=== PATIENT | male | born 1945 | race Caucasian/White ===

== ENCOUNTER 2021-08-30 16:08 | Inpatient (IN) ==
--- NOTE | 2021-08-30 16:35 | Emergency Department Note ---
Impression & Plan SOB (shortness of breath), Pleuritic chest pain, Pulmonary emboli, Recent surgical procedure on lower extremity ED Provider Note NAME: ELFEGO LARRY AGE: 76 SEX: M : 1945 ARRIVES VIA: Walk-In INFORMANT: [Patient] ED PROVIDER(S): [Catrachito Lima MD] CHIEF COMPLAINT: Abnormal CT scan HISTORY OF PRESENT ILLNESS: The patient is a 76-year-old male who states that for 4 days, he has been short of breath and he has noticed some left pleuritic chest pain. The pain is moderate in severity. The patient has not had an increased cough or fever. He has no history of DVT or PE. Because of his complaints, he saw his doctor's office 2 days ago, and today, had a CT of his chest run. He does have bilateral pulmonary embolus findings. He was referred to the ER. The patient did have a surgery on the left posterior leg. The surgical work was done on August 15, about 2 weeks ago. The surgery was done for a melanoma. He also had a biopsy of the left groin lymph glands. The patient states that his biopsy and surgical sites are healing well. He is due to have the sutures out soon from the back of the left leg. He did notice some left leg swelling right after the surgery however, this seems to have resolved. The patient is vaccinated for COVID-19. He actually had COVID about 2 years ago at the start of the pandemic. He carries a history of interstitial lung disease. REVIEW OF SYSTEMS: See HPI for pertinent positives and negatives. A total of ten systems were reviewed and were otherwise negative. PMHx/PSHx: See Below SOCIAL HISTORY: See Below. PHYSICAL EXAM: GENERAL: Patient is in no acute distress. HEENT: No acute trauma, normocephalic atraumatic, mucous membranes moist, no nasal congestion, no scleral icterus. NECK: No stridor, no adenopathy, no meningismus, trachea is midline. LUNGS: A few very fine crackles were heard, no wheezes, no respiratory distress, breath sounds equal. HEART: Without murmurs gallops or rubs, regular rate and rhythm. ABDOMEN: Soft, nontender, bowel sounds positive, no hernias, no peritonitis. EXTREMITIES: No cyanosis or edema, full range of motion of all the joints without pain or difficulty, no signs for acute trauma. Patient does have sutures in place behind the left knee. There is some erythema around the wound but no warmth or drainage. NEUROLOGIC: Oriented x 3, no acute motor or sensory deficits, no focal weakness. SKIN: No rash, no jaundice, no diaphoresis. DIFFERENTIAL DIAGNOSIS: Reactive airway disease, pneumonia, pneumothorax, COVID-19, COPD, CHF, infection, cardiac ischemia, pulmonary embolism, DVT, bronchitis, musculoskeletal, gastrointestinal, as well as other pathologies. EMERGENCY DEPARTMENT COURSE/PROCEDURES: ECG: Indication was shortness of breath. The ECG shows a normal sinus rhythm with a rate of 77. There is no ST elevation, no PVCs. LVH is present. The QTc is 434. Continuous Cardiac Monitoring: An order was placed for continuous cardiac monitoring. The monitor shows a rate of 86 with normal sinus rhythm. Critical Care Note: I have personally spent 41 minutes of critical care time in the direct management of this patient. This includes bedside care, interpretation of diagnostic studies, and testing, discussion with consultants, patient, and family members, and other required patient management activities. This 41 minutes is in excess of all separately billable procedures. MEDICAL DECISION MAKING: There is a mild leukocytosis which could be consistent with infection or just the stress of his situation. There is a normal hemoglobin and platelet count. No concerning coagulopathy. No significant electrolyte abnormality or kidney failure. There is no concerning liver enzyme elevation. Covid testing is negative. ECG shows a sinus rhythm, no acute ischemia. Cardiac enzyme testing x1 is not consistent with acute cardiac injury. Chest x-ray shows some chronic findings, no pneumonia or CHF, no pneumothorax. CT imaging from earlier today does show segmental and subsegmental bilateral pulmonary emboli. Bilateral lower extremity ultrasound is currently pending. The patient presents with an abnormal outpatient chest CT. He has bilateral pulmonary emboli. He did recently have surgery on his left lower extremity. He has complained of some pleuritic chest pain and shortness of breath. Given the recent surgery, given the multiple PEs, I do think a hospital stay is warranted. He requires IV anticoagulation. The patient was ordered for IV heparin, low dose, without a bolus. I spoke with the patient, I did speak with case management. The on-call hospitalist has been consulted. Past Med/Surg History Medical History Constipation COVID-19 Transurethral prostatectomy (05/14/13) Social History Smoking Status: Never smoker Tobacco Type: Cigarettes Feels Safe at Home: Yes Allergies Allergies Allergy/AdvReac Type Severity Reaction Status Date / Time phenazopyridine AdvReac Intermediate TACHYCARDIA Verified 08/30/21 16:58 tamsulosin AdvReac Intermediate HYPOTENSION Verified 08/30/21 16:58 Home Meds Home Medications Medication Instructions Recorded Confirmed acetaminophen 500 mg tablet 500 - 1,000 mg PO DIRECTED PRN 08/30/21 08/30/21 (Tylenol Extra Strength) albuterol sulfate 90 mcg/actuation 2 puff INHALATION DIRECTED PRN 08/30/21 08/30/21 aerosol inhaler amlodipine 5 mg tablet 5 mg PO DAILY 08/30/21 08/30/21 atenolol 25 mg tablet 25 mg PO DAILY 08/30/21 08/30/21 atorvastatin 10 mg tablet 10 mg PO DAILY 08/30/21 08/30/21 cephalexin 500 mg capsule 500 mg PO BID 08/30/21 08/30/21 prednisone 5 mg tablet 5 mg PO DAILY 08/30/21 08/30/21 sulfamethoxazole 800 1 tab PO BID 08/30/21 08/30/21 mg-trimethoprim 160 mg tablet Results & Data (ED) Vital Signs Vital Signs - 24 hr 08/30/21 16:16 Temperature 37.2 C Temperature Source Temporal Artery Scan Pulse Rate 86 Respiratory Rate 18 Blood Pressure 123/81 Blood Pressure Mean 95 Pulse Oximetry 94 Oxygen Delivery Method Room Air Sepsis Recent Fever Within 48 Hours No Sepsis New/Unexplained Change in Mental Status N/A Sepsis Action Taken by Nursing No Action Required Home Medications Current Medication List: was personally reviewed by me Laboratory Data Attestation: I reviewed the patient's lab results. Result diagrams: 08/30/21 16:49 08/30/21 16:49 Lab Results 08/30/21 08/30/21 08/30/21 Range/Units 16:49 16:49 16:49 WBC 13.78 H (4.8-10.8) K/uL RBC 4.82 (4.7-6.1) M/uL Hgb 14.9 (14.0-18.0) g/dL Hct 44.4 (42-52) % MCV 92.1 (80-100) fL MCH 30.9 (25-34) pg MCHC 33.6 (32-36) g/dL RDW Std Deviation 44.8 (36.4-46.3) fL RDW Coeff of Andrew 13.2 (11.5-14.5) % Plt Count 274 (130-400) K/uL MPV 10.7 H (7.4-10.4) fL Immature Gran % (Auto) 0.6 % Neut % (Auto) 77.6 % Lymph % (Auto) 12.1 % [place] % (Auto) 8.3 % Eos % (Auto) 1.0 % Baso % (Auto) 0.4 % Neut # (Auto) 10.69 H (1.4-6.5) K/uL Lymph # (Auto) 1.67 (1.2-3.4) K/uL [place] # (Auto) 1.15 H (0.11-0.59) K/uL Eos # (Auto) 0.14 (0-0.5) K/uL Baso # (Auto) 0.05 (0-0.2) K/uL Immature Gran # (Auto) 0.08 H (0.00-0.02) K/uL PT 10.3 (9.0-12.0) Seconds INR 1.0 (0.9-1.1) APTT 24.4 (21.0-31.0) Seconds PTT Ratio 0.9 Sodium 138 (136-145) mmol/L Potassium 4.4 (3.5-5.1) mmol/L Chloride 102 (98-107) mmol/L Carbon Dioxide 26 (21-32) mmol/L Anion Gap 10 (3-11) BUN 16 (6-23) mg/dl Creatinine 0.78 (0.6-1.4) mg/dl Est Cr Clr Drug Dosing Not Reportable Est GFR ( Amer) 101.6 ml/min Est GFR (Non-Af Amer) 87.7 ml/min BUN/Creatinine Ratio 20.5 H (10-20) Glucose 91 (70-99(Fasting)) mg/dl Calcium 8.9 (8.5-10.1) mg/dl Magnesium 2.0 (1.7-2.4) mg/dl Total Bilirubin 0.8 (0.2-1.0) mg/dl AST 12 L (13-39) U/L ALT 11 (7-52) U/L Alkaline Phosphatase 78 (34-104) U/L Troponin I < 0.03 (0-0.04) ng/ml Total Protein 6.8 (6.0-8.3) gm/dl Albumin 3.8 (3.4-5.0) gm/dl Globulin 3.0 (2.5-4.0) gm/dl Albumin/Globulin Ratio 1.3 (0.9-2) SARS-CoV-2, RNA, NAAT (NEGATIVE) 08/30/21 Range/Units 17:15 WBC (4.8-10.8) K/uL RBC (4.7-6.1) M/uL Hgb (14.0-18.0) g/dL Hct (42-52) % MCV (80-100) fL MCH (25-34) pg MCHC (32-36) g/dL RDW Std Deviation (36.4-46.3) fL RDW Coeff of Andrew (11.5-14.5) % Plt Count (130-400) K/uL MPV (7.4-10.4) fL Immature Gran % (Auto) % Neut % (Auto) % Lymph % (Auto) % [place] % (Auto) % Eos % (Auto) % Baso % (Auto) % Neut # (Auto) (1.4-6.5) K/uL Lymph # (Auto) (1.2-3.4) K/uL [place] # (Auto) (0.11-0.59) K/uL Eos # (Auto) (0-0.5) K/uL Baso # (Auto) (0-0.2) K/uL Immature Gran # (Auto) (0.00-0.02) K/uL PT (9.0-12.0) Seconds INR (0.9-1.1) APTT (21.0-31.0) Seconds PTT Ratio Sodium (136-145) mmol/L Potassium (3.5-5.1) mmol/L Chloride (98-107) mmol/L Carbon Dioxide (21-32) mmol/L Anion Gap (3-11) BUN (6-23) mg/dl Creatinine (0.6-1.4) mg/dl Est Cr Clr Drug Dosing Est GFR ( Amer) ml/min Est GFR (Non-Af Amer) ml/min BUN/Creatinine Ratio (10-20) Glucose (70-99(Fasting)) mg/dl Calcium (8.5-10.1) mg/dl Magnesium (1.7-2.4) mg/dl Total Bilirubin (0.2-1.0) mg/dl AST (13-39) U/L ALT (7-52) U/L Alkaline Phosphatase (34-104) U/L Troponin I (0-0.04) ng/ml Total Protein (6.0-8.3) gm/dl Albumin (3.4-5.0) gm/dl Globulin (2.5-4.0) gm/dl Albumin/Globulin Ratio (0.9-2) SARS-CoV-2, RNA, NAAT NEGATIVE (NEGATIVE) Imaging Data Radiologist's Impression: Chest X-Ray 08/30/21 16:30 SINGLE VIEW CHEST CLINICAL HISTORY: Dyspnea. FINDINGS: An AP, portable, upright chest radiograph is compared to study dated 06/17/2020 and correlated with chest CT dated 08/30/2021. The heart is enlarged. The pulmonary vasculature is noncongested. Chronic interstitial thickening is similar to previous. Scarring/atelectasis is noted the lung bases. Suture material projects over the right midlung. No airspace consolidation or large pleural effusion is identified. No pneumothorax is seen. The skeletal structures are osteopenic. The bony thorax is grossly intact. IMPRESSION: Cardiomegaly with no acute cardiopulmonary abnormality. ACT 112: Negative or not required by law. Electronically signed by: Catrachito Blank M.D. 08/30/2021 4:[address] angio chest PE protocol CT DOSE: 474.05 mGycm HISTORY: 76 years-old Male with PEL LOWER CH PAIN,SOB,CHILLS/FEVER. Acute fever with shortness of breath and chills TECHNIQUE: Multiple CTA images of the chest were obtained after the intravenous administration of 116 ml Optiray. Coronal and sagittal MIPS were obtained from the axial data set and were submitted for review. All measurements were obtained according to NASCET criteria. A dose lowering technique was utilized adhering to the principles of ALARA. COMPARISON: Chest radiograph of same day, chest CT 06/17/2013. FINDINGS: CTA: Moderate cardiomegaly. Moderate coronary artery calcifications. No pericardial effusion. No thoracic aortic aneurysm or dissection. There is patency of the imaged great vessels. No central pulmonary emboli. Segmental and subsegmental pulmonary emboli are noted within the lower lobes. No evidence of right heart strain. CT CHEST: No thyroid nodule or pathologically enlarged lymph nodes. Trace left pleural effusion. No pneumothorax. Postoperative changes of the right upper lobe. Bilateral multifocal intermixed reticular interstitial and groundglass opacities are noted within a bibasilar prominent distribution, similar to the 2013 study. The central airways appear patent. No acute process of the imaged upper abdomen. Gynecomastia. No acute fracture. IMPRESSION: 1. Segmental and subsegmental pulmonary emboli of the lower lobes. 2. Bilateral reticular interstitial and groundglass opacities are most pronounced within the lung bases, similar to the 06/17/2013 study. Fibrotic changes with atelectasis is favored. A superimposed infectious or inflammatory pneumonitis would be difficult to exclude. 3. Trace left pleural effusion. 4. Moderate cardiomegaly. Bilateral lower extremity ultrasound: Pending. Discharge Plan Visit Data Chief Complaint: Referred by Doctor Stated Complaint: REF BY DOC, NEEDS CT SCAN ED Provider: Catrachito Lima Discharge Problem: SOB (shortness of breath), Pleuritic chest pain, Pulmonary emboli, Recent surgical procedure on lower extremity Patient Disposition: Admitted As Inpatient Condition: Fair Forms Stand Alone Forms: My [facility] Prescriptions Prescriptions: No Action atorvastatin 10 mg tablet 10 mg PO DAILY RF: 0 prednisone 5 mg tablet 5 mg PO DAILY RF: 0 atenolol 25 mg tablet 25 mg PO DAILY RF: 0 amlodipine 5 mg tablet 5 mg PO DAILY RF: 0 sulfamethoxazole-trimethoprim 800-160 mg tablet 1 tab PO BID RF: 0 cephalexin 500 mg capsule 500 mg PO BID RF: 0 albuterol sulfate 90 mcg/actuation HFA aerosol inhaler 2 puff inhalation DIRECTED PRN (Reason: Shortness Of Breath) RF: 0 acetaminophen [Tylenol Extra Strength] 500 mg Tablet 500 - 1,000 mg PO DIRECTED PRN (Reason: PAIN/FEVER) RF: 0 Referrals Referrals: David Almaguer MD [Primary Care Provider] - Discharge Problem: Pulmonary emboli Qualifiers: Pulmonary embolism type: multiple subsegmental (without acute cor pulmonale) Qualified Code(s): I26.94 - Multiple subsegmental pulmonary emboli without acute cor pulmonale
--- NOTE | 2021-08-30 16:51 | XRay Report ---
SINGLE VIEW CHEST CLINICAL HISTORY: Dyspnea. FINDINGS: An AP, portable, upright chest radiograph is compared to study dated 06/17/2020 and correla jone with chest CT dated 08/30/2021. The heart is enlarged. The pulmonary vasculature is noncongested. C hronic interstitial thickening is similar to previous. Scarring/atelectasis is noted the lung bases. Suture material projects over the right midlung. No airspace consolidation or large pleural effusion is identified. No pneumothorax is seen. The skeletal structures are osteopenic. The bony thorax is gr ossly intact. IMPRESSION: Cardiomegaly with no acute cardiopulmonary abnormality. ACT 112: Negative or not required by law. Electronically signed by: Catrachito Blank M.D. 08/30/2021 4:49 PM
[2021-08-30 17:07] LABS: Basophils # (auto) 0.05 K/uL (0-0.2); Basophils % (auto) 0.4 %; Eosinophils # (auto) 0.14 K/uL (0-0.5); Hematocrit (blood only) 44.4 % (42-52); Hemoglobin 14.9 g/dL (14.0-18.0); Immature Granulocytes # (auto) 0.08 K/uL (0.00-0.02); Immature Granulocytes % (auto) 0.6 %; Lymphocytes # (auto) 1.67 K/uL (1.2-3.4); Lymphocytes % (auto) 12.1 %; Mean Corpuscular Hemoglobin 30.9 pg (25-34); Mean Corpuscular Hgb Conc 33.6 g/dL (32-36); Mean Corpuscular Volume 92.1 fL (80-100); Mean Platelet Volume 10.7 fL (7.4-10.4); Monocytes # (auto) 1.15 K/uL (0.11-0.59); Monocytes % (auto) 8.3 %; Neutrophils # (auto) 10.69 K/uL (1.4-6.5); Neutrophils % (auto) 77.6 %; Platelet Count 274 K/uL (130-400); RDW Coefficient of Variation 13.2 % (11.5-14.5); RDW Standard Deviation 44.8 fL (36.4-46.3); Red Blood Count 4.82 M/uL (4.7-6.1); White Blood Count 13.78 K/uL (4.8-10.8)
[2021-08-30 17:17] LABS: Partial Thromboplastin Ratio 0.9; Partial Thromboplastin Time 24.4 Seconds (21.0-31.0); Prothrombin Time 10.3 Seconds (9.0-12.0)
[2021-08-30 17:36] LABS: Alanine Aminotransferase 11 U/L (7-52); Albumin Globulin Ratio 1.3 (0.9-2); Albumin Level 3.8 gm/dl (3.4-5.0); Alkaline Phosphatase 78 U/L (34-104); Anion Gap 10 (3-11); Aspartate Aminotransferase 12 U/L (13-39); BUN Creatinine Ratio 20.5 (10-20); Bilirubin,Total 0.8 mg/dl (0.2-1.0); Blood Urea Nitrogen 16 mg/dl (6-23); Calcium 8.9 mg/dl (8.5-10.1); Carbon Dioxide 26 mmol/L (21-32); Chloride 102 mmol/L (98-107); Est GFR (African American) 101.6 ml/min; Est GFR (Non-African American) 87.7 ml/min; Glucose 91 mg/dl (70-99(Fasting)); Potassium 4.4 mmol/L (3.5-5.1); Sodium 138 mmol/L (136-145); Total Protein 6.8 gm/dl (6.0-8.3)
[2021-08-30 17:37] LABS: Troponin I < 0.03 ng/ml (0-0.04)
[2021-08-30] MEDS ORDERED: Heparin IV Adult Wt-Based Low-Dose *NO* Bolus Protocol IV ONE (20:13)
--- NOTE | 2021-08-30 20:34 | Ultrasound Report ---
BILATERAL LOWER EXTREMITY VENOUS DOPPLER HISTORY: Acute pain and swelling of the lower legs PE on Ct scan, left leg surg recently COMPARISON STUDY: None. FINDINGS: There is normal compressibility, flow, and augmentation within the bilateral lower extremit y deep venous systems. Indeterminate lobular hypoechoic cystic structure of the left inguinal subcuta neous tissues, 5.3 x 2.9 x 6.2 cm. This demonstrates no appreciable color flow and minimal internal e chogenic debris. IMPRESSION: 1. No DVT within the right or left lower extremity. 2. Indeterminate cystic structure of the left inguinal subcutaneous tissues measuring up to 6.2 cm. C orrelate with patient history and clinical exam findings. ACT 112: Negative or not required by law. Electronically signed by: Cyrus Larsen M.D. 08/30/2021 8:33 PM
[2021-08-30] MEDS: HEPARIN SODIUM/DEXTROSE 25,000 UNITS/500 ML BAG IV SCH (20:42)
[2021-08-30] MEDS ORDERED: HEPARIN SODIUM/DEXTROSE 25,000 UNITS/500 ML BAG IV SCH (22:55)
[2021-08-30] MEDS ORDERED: Heparin IV Adult Wt-Based Standard *NO* Bolus Protocol IV SCH (22:55)
[2021-08-30] MEDS ORDERED: NITROGLYCERIN SL 0.4 MG/TAB TAB SL PRN (22:55)
[2021-08-30] MEDS ORDERED: SODIUM CHLORIDE 0.9% 1000ML 1,000 ML IV SCH (22:55)
[2021-08-30] MEDS ORDERED: ALBUTEROL HFA 8 GM INHALER INH PRN (22:55)
[2021-08-30] MEDS ORDERED: POLYETHYLENE (MIRALAX) 17 GM PACK PO PRN (22:55)
[2021-08-30] MEDS ORDERED: ONDANSETRON INJ 2 MG/ML 2 ML VIAL IV PRN (22:55)
[2021-08-30] MEDS ORDERED: ACETAMINOPHEN 325 MG TAB PO PRN (22:55)
[2021-08-30] MEDS ORDERED: GLUCAGON FOR INJ 1 MG VIAL IM PRN (23:45)
[2021-08-30] MEDS ORDERED: GLUCOSE 10 TABS/TUBE PO PRN (23:45)
[2021-08-30] MEDS ORDERED: GLUCOSE 40% GEL 15 GM TUBE PO PRN (23:45)
[2021-08-30] MEDS ORDERED: DEXTROSE 50% 50 ML SYRINGE IV PRN (23:45)
[2021-08-30] MEDS ORDERED: CARBOHYDRATES FOR HYPOGLYCEMIA PO PRN (23:45)
--- NOTE | 2021-08-31 00:47 | History and Physical Report ---
DATE OF ADMISSION: 08/30/2021. CHIEF COMPLAINT: Bilateral PE. HISTORY OF PRESENT ILLNESS: A 76-year-old male with past medical history significant for steroid-induced diabetes mellitus, hyperlipidemia, interstitial lung disease, nonspecific interstitial pneumonia, obstructive sleep apnea, on CPAP, mitral and aortic valve regurgitation, diastolic dysfunction, BPH, history of prostate cancer, connective tissue disease, polyarthropathy, bilateral hearing loss, history of malignant melanoma of skin, history of COVID-19 last year, who presents with shortness of breath and chest pain, and found to have bilateral PE. The patient says on 08/15/2021, he underwent excision of the melanoma on his left leg near the popliteal region and also sentinel lymph node biopsy in left groin which seems for metastatic melanoma and on 08/27/2021, noticed pain on taking a deep breath pain in his left lower cage and upper abdomen and he went to see family doctor on last Saturday and was prescribed Keflex for possible infection at the excision site of the melanoma, but last night, yesterday, he was having fever, chills, temperature 101. He went to family doctor today again and complained of again chest pain in the left lower ribcage, more when taking deep breath. CT scan was done and showed bilateral lower lobe PEs and he was advised to come to the hospital. PCP also added Bactrim today , but he did not take the Bactrim yet. In the ER, lower extremity Doppler was negative . Currently, resting comfortably and hemodynamically stable, saturating fine on room air. Has some low-grade headache. No blurred vision, no earache, no runny nose, no sore throat, no cough, no nausea. Has some shortness of breath on exertion. Appetite is down today. No abdominal pain. Normal bowel and bladder movements. No blood in the stool or black stools. ALLERGIES: ____, FLOMAX. PAST MEDICAL HISTORY: As mentioned above. PAST SURGICAL HISTORY: Bronchoscopy, biopsy of the left groin lymph node, cystourethroscopy, incisional hernia repair, lumbar spine shots, cyst removal of the left forearm, oral surgery, TURP, tonsillectomy, adenoidectomy, repair of the inguinal hernia, umbilical hernia repair. MEDICATIONS: The patient is on Tylenol 500 mg p.o. p.r.n., albuterol 2 puffs inhalation p.r.n., amlodipine 5 mg p.o. daily, atenolol 25 mg p.o. daily, atorvastatin 10 mg p.o. daily, Keflex 500 mg p.o. b.i.d., prednisone 5 mg p.o. daily, Bactrim 1 tablet p.o. b.i.d. FAMILY HISTORY: Significant for father has enlarged prostate, CHF, asbestosis. SOCIAL HISTORY: . Quit smoking in 1974. Smoked 1 pack a day for 10 years. Alcohol, rarely. No drug use. REVIEW OF SYSTEMS: As per HPI. Rest of review of systems is negative. PHYSICAL EXAMINATION: GENERAL: The patient is of moderate build, not in acute distress. VITAL SIGNS: Temperature 37.2, pulse 84, respiratory rate 20, blood pressure 115/90, oxygen 93% on room air. HEENT: Pupils equal, round and reactive to light. Oral mucosa moist. NECK: No JVD, no neck masses. CARDIOVASCULAR: S1 and S2 heard. Regular rate and rhythm. No murmur, no gallop. RESPIRATORY SYSTEM: Normal AP diameter. No accessory muscle use. No wheezing, no crackles. ABDOMEN: Soft, bowel sounds present, nontender, no distention. CENTRAL NERVOUS SYSTEM: Cranial nerves II-XII grossly intact, nonfocal. EXTREMITIES: Incision site sutures in the left popliteal region, but slight erythematous changes. Left groin incision site is healing. No edema seen. LABORATORY DATA: WBC 13.7, hemoglobin 14.9, hematocrit 44.4, platelets 274. PT 13.3, INR 1, APTT 24.4. Sodium 138, potassium 4.4, chloride 102, bicarbonate 26, BUN 16, creatinine 0.7, serum glucose 91, calcium 8.9, magnesium 2, total bilirubin 0.8, AST 12, ALT 11, alkaline phosphatase 78, troponin I of less than 0.03. SARS-CoV-2 RNA negative. IMAGING DATA: Chest x-ray, no acute cardiopulmonary findings. Venous Doppler, no DVT in bilateral lower extremities. Indeterminate cystic structure of the left inguinal subcutaneous tissue measuring up to 6.2 cm. EKG: Normal sinus rhythm at a rate of 77, no significant change was found. ASSESSMENT AND PLAN: This is a 76-year-old male who presents with bilateral pulmonary embolism. 1. Bilateral pulmonary embolism: Was started on IV heparin. May plan for Novel anticoagulants. Will follow the echocardiogram. Monitor in the nScaled tele. PT/OT prior to discharge. Social service to help with discharge planning. 2. History of melanoma: Status post excision. Follow up with dermatology. 3. History of prostate cancer: Low-grade, status post transurethral resection of the prostrate. History of benign prostatic hyperplasia, continue to follow with urology. 4. History of hypertension: Continue amlodipine and atenolol. 5. Hyperlipidemia: Continue statin. 6. History of interstitial lung disease: Albuterol p.r.n. 7. History of sleep apnea: On CPAP at bedtime. 8. Steroid-induced diabetes: Will follow the blood sugars and HbA1c level, insulin sliding scale, not on any medication at home. 9. History of diffuse connective tissue disease, polyarthropathy: On prednisone. 10. Deep venous thrombosis prophylaxis: On IV heparin. DISPOSITION: Closely monitor in the nScaled tele. PT/OT prior to discharge. Social service to help with discharge planning. Job ID: [id number]
[2021-08-31] MEDS: cefTRIAXone SODIUM 2,000 MG in DEXTROSE 5% 50 ML IV SCH ×2 (01:03→23:03)
[2021-08-31 02:29] LABS: Basophils # (auto) 0.04 K/uL (0-0.2); Basophils % (auto) 0.4 %; Eosinophils # (auto) 0.23 K/uL (0-0.5); Eosinophils % (auto) 2.1 %; Hematocrit (blood only) 42.1 % (42-52); Hemoglobin 13.7 g/dL (14.0-18.0); Immature Granulocytes # (auto) 0.06 K/uL (0.00-0.02); Immature Granulocytes % (auto) 0.5 %; Lymphocytes # (auto) 2.32 K/uL (1.2-3.4); Lymphocytes % (auto) 21.1 %; Mean Corpuscular Hemoglobin 30.4 pg (25-34); Mean Corpuscular Hgb Conc 32.5 g/dL (32-36); Mean Corpuscular Volume 93.3 fL (80-100); Mean Platelet Volume 10.4 fL (7.4-10.4); Monocytes # (auto) 1.17 K/uL (0.11-0.59); Monocytes % (auto) 10.7 %; Neutrophils # (auto) 7.16 K/uL (1.4-6.5); Neutrophils % (auto) 65.2 %; Platelet Count 276 K/uL (130-400); RDW Coefficient of Variation 13.3 % (11.5-14.5); RDW Standard Deviation 45.9 fL (36.4-46.3); Red Blood Count 4.51 M/uL (4.7-6.1); White Blood Count 10.98 K/uL (4.8-10.8)
[2021-08-31] MEDS: DOXYCYCLINE HYCLATE 100 MG in DEXTROSE 5% 100 ML IV SCH ×3 (02:30→23:42)
[2021-08-31 02:47] LABS: BUN Creatinine Ratio 21.3 (10-20); Calcium 8.4 mg/dl (8.5-10.1); Creatinine Clr Calc Pharmacy 82.3 ml/min; Est GFR (African American) 100.6 ml/min; Est GFR (Non-African American) 86.8 ml/min; Magnesium 2.1 mg/dl (1.7-2.4)
[2021-08-31 02:59] LABS: Partial Thromboplastin Ratio 1.8
[2021-08-31 03:02] LABS: Partial Thromboplastin Time 46.3 Seconds (21.0-31.0)
[2021-08-31 07:05] LABS: Estimated Average Glucose 123 mg/dl; Hemoglobin A1C 5.9 % (4.5-5.6)
[2021-08-31] MEDS: ATENOLOL 25 MG TABLET PO SCH (08:46)
[2021-08-31] MEDS: amLODIPine BESYLATE 5 MG TAB PO SCH (08:46)
[2021-08-31] MEDS: INSULIN ASPART PER UNIT SC SCH ×4 (08:46→21:01)
[2021-08-31] MEDS: predniSONE 5 MG TAB PO SCH (08:47)
[2021-08-31] MEDS: ATORVASTATIN 10 MG TAB PO SCH (08:47)
[2021-08-31] MEDS ORDERED: cefTRIAXone SODIUM 1,000 MG in DEXTROSE 5% 50 ML IV SCH (09:00)
--- NOTE | 2021-08-31 15:40 | Hospitalist Progress Note ---
Date of Service August 31, 2021 Assessment & Plan (1) Pulmonary emboli: Plan: Recent melanoma surgery and left popliteal fossa and also lymphadenectomy left inguinal area Has been sedentary for more than a week and presented with shortness of breath with exertion and lower chest pain with deep breathing CTA did not show segmental and subsegmental pulmonary emboli of the lower lobes No evidence of DVT in lower extremities Likely provoked thromboembolism Has been on intravenous heparin and will likely start Eliquis on discharge tomorrow Has been feeling much better since admission (2) SOB (shortness of breath): Plan: As above (3) Pleuritic chest pain: Plan: Secondary to pulmonary embolism and pleurisy (4) Recent surgical procedure on lower extremity: Plan: Left popliteal fossa melanoma surgery and left inguinal lymphadenectomy May be contributing thromboembolism Plan: Has bilateral pulmonary fibrosis Seems to be stable and has been requiring any oxygen as an outpatient DVT prophylaxis IV heparin CODE STATUS Full Admission and Anticipated Discharge Date Admission Date: August 30, 2021 Subjective 08/31/2021 The patient was seen and examined in emergency room in the [facility] area He was admitted yesterday with chest pain with deep breathing and shortness of breath with exertion Noted to have bilateral lower branches pulmonary embolism Has had melanoma surgery with less ambulation for the last 7 to 9 days He has been feeling much better since admission Review of Systems Review of Systems: All systems reviewed and are unremarkable except as noted below Respiratory: Minimal chest pain with deep breathing Physical Exam Physical Exam: Standing alongside the bed without any acute distress Constitutional: well developed and well nourished; not ill appearing Eyes: PERRL, conjunctivae normal, anicteric sclerae ENMT: external ear and nose normal, oropharynx normal Neck: trachea midline, no thyromegaly Respiratory: no respiratory distress Auscultation: + diminished lung sounds and + crackles (Bibasilar fine crackles) Cardiovascular: Rate/Rhythm: regular rate and regular rhythm; not tachycardic Heart Sounds: normal S1 and normal S2; no murmur Extremities: no edema Gastrointestinal (Abdomen): Inspection/Auscultation: normal bowel sounds; abdomen not distended Percussion/Palpation: abdomen soft; abdomen nontender Musculoskeletal: Resection of melanoma from left popliteal fossa and also left inguinal area lymphadenectomy Neurologic: Alert, awake and oriented x3. No focal sensory and motor deficit appreciated Results & Data Results & Data ([facility]) Vital Signs (Past 12 Hours) Vital Signs Temp Pulse Resp BP Pulse Ox Pulse Ox 08/31/21 08:00 80 20 137/71 94 94 08/31/21 04:23 37.2 C 76 18 130/73 93 Laboratory Results Short CBC 08/30/21 08/31/21 Range/Units 16:49 02:22 WBC 13.78 H 10.98 H (4.8-10.8) K/uL Hgb 14.9 13.7 L (14.0-18.0) g/dL Hct 44.4 42.1 (42-52) % Plt Count 274 276 (130-400) K/uL BMP 08/30/21 08/31/21 16:49 02:22 Sodium 138 139 Potassium 4.4 4.0 Chloride 102 103 Carbon Dioxide 26 29 BUN 16 17 Creatinine 0.78 0.80 Glucose 91 92 Calcium 8.9 8.4 L Cardiac Enzymes 08/30/21 Range/Units 16:49 Troponin I < 0.03 (0-0.04) ng/ml Liver Function 08/30/21 Range/Units 16:49 Total Bilirubin 0.8 (0.2-1.0) mg/dl AST 12 L (13-39) U/L ALT 11 (7-52) U/L Alkaline Phosphatase 78 (34-104) U/L Albumin 3.8 (3.4-5.0) gm/dl Medications Administered Current Inpatient Medications Acetaminophen (Acetaminophen 325 Mg Tab) 650 mg PO Q4H PRN PRN Reason: Pain or Fever Stop: 09/29/21 22:54 Albuterol (Albuterol Hfa 8 Gm Inhaler) 2 puffs INH DAILY PRN PRN Reason: Shortness Of Breath Stop: 09/29/21 22:54 Amlodipine Besylate (Amlodipine Besylate 5 Mg Tab) 5 mg PO DAILY [facility] Stop: 09/30/21 08:59 Last Admin: 08/31/21 08:46 Dose: 5 mg Documented by: Atenolol (Atenolol 25 Mg Tablet) 25 mg PO DAILY [facility] Stop: 09/30/21 08:59 Last Admin: 08/31/21 08:46 Dose: 25 mg Documented by: Atorvastatin Calcium (Atorvastatin 10 Mg Tab) 10 mg PO DAILY [facility] Stop: 09/30/21 08:59 Last Admin: 08/31/21 08:47 Dose: 10 mg Documented by: Dextrose (Dextrose 50% 50 Ml Syringe) 25 - 50 ml IV UD PRN; Protocol PRN Reason: Hypoglycemia Protocol Stop: 09/29/21 23:44 Glucagon (Glucagon For Inj 1 Mg Vial) 1 mg IM UD PRN; Protocol PRN Reason: Hypoglycemia Protocol Stop: 09/29/21 23:44 Glucose (Glucose 40% Gel 15 Gm Tube) 15 - 30 gm PO UD PRN; Protocol PRN Reason: Hypoglycemia Protocol Stop: 09/29/21 23:44 Glucose (Glucose 10 Tabs/Tube) 4 - 8 tabs PO UD PRN; Protocol PRN Reason: Hypoglycemia Protocol Stop: 09/29/21 23:44 Heparin Sodium/Dextrose (Heparin Sodium/Dextrose) 25,000 units in 500 mls @ 27 mls/hr IV .[id number] [facility]; Protocol Stop: 09/29/21 20:29 Last Titration: 08/30/21 23:34 Dose: 1,350 units/hr, 27 mls/hr Documented by: Doxycycline Hyclate 100 mg/ (Dextrose) 110 mls @ 50 mls/hr IV Q12H [facility] Stop: 09/07/21 00:00 Last Admin: 08/31/21 13:09 Dose: 50 mls/hr Documented by: Ceftriaxone Sodium 2,000 mg/ (Dextrose) 70 mls @ 140 mls/hr IV Q24H [facility] Stop: 09/06/21 23:29 Last Infusion: 08/31/21 01:39 Dose: Infused Documented by: Insulin Aspart (Insulin Aspart Per Unit) 0 units SC ACHS [facility] Stop: 09/30/21 07:29 Last Admin: 08/31/21 12:16 Dose: Not Given Documented by: Miscellaneous (Carbohydrates For Hypoglycemia ) 15 - 30 gm PO UD PRN PRN Reason: Hypoglycemia Treatment Stop: 09/29/21 23:44 Nitroglycerin (Nitroglycerin Sl 0.4 Mg/Tab Tab) 0.4 mg SL UD PRN PRN Reason: Chest Pain Stop: 09/29/21 22:54 Ondansetron HCl (Ondansetron Inj 2 Mg/Ml 2 Ml Vial) 4 mg IV Q6H PRN PRN Reason: Nausea Stop: 09/29/21 22:54 Polyethylene Glycol (Polyethylene (Miralax) 17 Gm Pack) 17 gm PO DAILY PRN PRN Reason: Constipation Stop: 09/29/21 22:54 Prednisone (Prednisone 5 Mg Tab) 5 mg PO DAILY [facility] Stop: 09/30/21 08:59 Last Admin: 08/31/21 08:47 Dose: 5 mg Documented by: (1) Pulmonary emboli Pulmonary embolism type: multiple subsegmental (without acute cor pulmonale) Qualified Code(s): I26.94 - Multiple subsegmental pulmonary emboli without acute cor pulmonale
[2021-08-31] MEDS: HEPARIN SODIUM/DEXTROSE 25,000 UNITS/500 ML BAG IV SCH (15:54)
--- NOTE | 2021-08-31 22:18 | Electrocardiogram Report ---
Test Reason : Blood Pressure : / mmHG Vent. Rate : 077 BPM Atrial Rate : 077 BPM P-R Int : 198 ms QRS Dur : 096 ms QT Int : 384 ms P-R-T Axes : 030 000 011 degrees QTc Int : 434 ms Normal sinus rhythm Minimal voltage criteria for LVH, may be normal variant Borderline ECG When compared with ECG of 17-JUN-2020 16:16, No significant change was found Confirmed by Siddharth Clark ([id number]) on 08/31/2021 10:18:05 PM Referred By: Anuhsa Self Confirmed By:Siddharth Clark
[2021-09-01 06:44] LABS: Partial Thromboplastin Ratio 2.5
[2021-09-01 06:45] LABS: Partial Thromboplastin Time 66.2 Seconds (21.0-31.0)
[2021-09-01] MEDS: ATORVASTATIN 10 MG TAB PO SCH (07:55)
[2021-09-01] MEDS: amLODIPine BESYLATE 5 MG TAB PO SCH (07:56)
[2021-09-01] MEDS: ATENOLOL 25 MG TABLET PO SCH (07:56)
[2021-09-01] MEDS: predniSONE 5 MG TAB PO SCH (07:56)
[2021-09-01] MEDS: INSULIN ASPART PER UNIT SC SCH ×2 (08:34→12:06)
[2021-09-01] MEDS ORDERED: APIXABAN 5 MG TABLET PO SCH (09:00)
--- NOTE | 2021-09-01 13:07 | Hospitalist Progress Note ---
Date of Service September 01, 2021 Assessment & Plan (1) Pulmonary emboli: Plan: Recent melanoma surgery and left popliteal fossa and also lymphadenectomy left inguinal area Has been sedentary for more than a week and presented with shortness of breath with exertion and lower chest pain with deep breathing CTA did not show segmental and subsegmental pulmonary emboli of the lower lobes No evidence of DVT in lower extremities Echo of the heart was unremarkable. Likely provoked thromboembolism Has been on intravenous heparin and will likely start Eliquis on discharge tomorrow Has been feeling much better since admission Has been ambulating in the room without any difficulties and denies any more chest pain Will be discharged home this afternoon on Eliquis to be continued for about 6 months We will make an appointment with his primary care physician Echo: Normal LV chamber size with moderate concentric LVH, normal LV systolic function with EF of 60 to 65%, no segmental left ventricular wall motion abnormalities, grade 1 diastolic dysfunction, right ventricular cavity size is normal and no significant valvular pathology. (2) SOB (shortness of breath): Plan: As above (3) Pleuritic chest pain: Plan: Secondary to pulmonary embolism and pleurisy (4) Recent surgical procedure on lower extremity: Plan: Left popliteal fossa melanoma surgery and left inguinal lymphadenectomy May be contributing thromboembolism He was strongly advised to make an appointment with his surgeon Plan: Has bilateral pulmonary fibrosis Seems to be stable and has been requiring any oxygen as an outpatient DVT prophylaxis IV heparin CODE STATUS Full Admission and Anticipated Discharge Date Admission Date: August 30, 2021 Subjective 08/31/2021 The patient was seen and examined in emergency room in the [facility] area He was admitted yesterday with chest pain with deep breathing and shortness of breath with exertion Noted to have bilateral lower branches pulmonary embolism Has had melanoma surgery with less ambulation for the last 7 to 9 days He has been feeling much better since admission 09/01/2021 The patient was seen and examined in medical telemetry unit He has been feeling much better and denies any chest pain and/or palpitation Denies any leg pain or swelling of the legs He will be discharged home this afternoon Review of Systems Review of Systems: All systems reviewed and are unremarkable except as noted below Respiratory: No chest pain and/or shortness of breath Physical Exam Physical Exam: Standing alongside the bed without any acute distress Constitutional: well developed and well nourished; not ill appearing Eyes: PERRL, conjunctivae normal, anicteric sclerae ENMT: external ear and nose normal, oropharynx normal Neck: trachea midline, no thyromegaly Respiratory: no respiratory distress Auscultation: + diminished lung sounds and + crackles (Bibasilar fine crackles) Cardiovascular: Rate/Rhythm: regular rate and regular rhythm; not tachycardic Heart Sounds: normal S1 and normal S2; no murmur Extremities: no edema Gastrointestinal (Abdomen): Inspection/Auscultation: normal bowel sounds; abdomen not distended Percussion/Palpation: abdomen soft; abdomen nontender Musculoskeletal: No acute arthritis in any joint Neurologic: Alert, awake and oriented x3. No focal sensory and motor deficit appreciated Results & Data Results & Data ([facility]) Vital Signs (Past 12 Hours) Vital Signs Temp Pulse Pulse Resp BP Pulse Ox 09/01/21 11:12 36.6 C 67 19 106/67 94 09/01/21 07:48 36.6 C 74 20 139/72 94 09/01/21 07:38 77 09/01/21 02:56 36.6 C 65 18 136/73 98 Medications Administered Current Inpatient Medications Acetaminophen (Acetaminophen 325 Mg Tab) 650 mg PO Q4H PRN PRN Reason: Pain or Fever Stop: 09/29/21 22:54 Albuterol (Albuterol Hfa 8 Gm Inhaler) 2 puffs INH DAILY PRN PRN Reason: Shortness Of Breath Stop: 09/29/21 22:54 Amlodipine Besylate (Amlodipine Besylate 5 Mg Tab) 5 mg PO DAILY [facility] Stop: 09/30/21 08:59 Last Admin: 09/01/21 07:56 Dose: 5 mg Documented by: Apixaban (Apixaban 5 Mg Tablet) 10 mg PO BID [facility] Stop: 09/07/21 21:01 Last Admin: 09/01/21 09:27 Dose: 10 mg Documented by: Atenolol (Atenolol 25 Mg Tablet) 25 mg PO DAILY [facility] Stop: 09/30/21 08:59 Last Admin: 09/01/21 07:56 Dose: 25 mg Documented by: Atorvastatin Calcium (Atorvastatin 10 Mg Tab) 10 mg PO DAILY [facility] Stop: 09/30/21 08:59 Last Admin: 09/01/21 07:55 Dose: 10 mg Documented by: Dextrose (Dextrose 50% 50 Ml Syringe) 25 - 50 ml IV UD PRN; Protocol PRN Reason: Hypoglycemia Protocol Stop: 09/29/21 23:44 Glucagon (Glucagon For Inj 1 Mg Vial) 1 mg IM UD PRN; Protocol PRN Reason: Hypoglycemia Protocol Stop: 09/29/21 23:44 Glucose (Glucose 40% Gel 15 Gm Tube) 15 - 30 gm PO UD PRN; Protocol PRN Reason: Hypoglycemia Protocol Stop: 09/29/21 23:44 Glucose (Glucose 10 Tabs/Tube) 4 - 8 tabs PO UD PRN; Protocol PRN Reason: Hypoglycemia Protocol Stop: 09/29/21 23:44 Doxycycline Hyclate 100 mg/ (Dextrose) 110 mls @ 50 mls/hr IV Q12H [facility] Stop: 09/07/21 00:00 Last Infusion: 09/01/21 01:57 Dose: Infused Documented by: Ceftriaxone Sodium 2,000 mg/ (Dextrose) 70 mls @ 140 mls/hr IV Q24H [facility] Stop: 09/06/21 23:29 Last Infusion: 08/31/21 23:42 Dose: Infused Documented by: Insulin Aspart (Insulin Aspart Per Unit) 0 units SC ACHS [facility] Stop: 09/30/21 07:29 Last Admin: 09/01/21 12:06 Dose: Not Given Documented by: Miscellaneous (Carbohydrates For Hypoglycemia ) 15 - 30 gm PO UD PRN PRN Reason: Hypoglycemia Treatment Stop: 09/29/21 23:44 Nitroglycerin (Nitroglycerin Sl 0.4 Mg/Tab Tab) 0.4 mg SL UD PRN PRN Reason: Chest Pain Stop: 09/29/21 22:54 Ondansetron HCl (Ondansetron Inj 2 Mg/Ml 2 Ml Vial) 4 mg IV Q6H PRN PRN Reason: Nausea Stop: 09/29/21 22:54 Polyethylene Glycol (Polyethylene (Miralax) 17 Gm Pack) 17 gm PO DAILY PRN PRN Reason: Constipation Stop: 09/29/21 22:54 Prednisone (Prednisone 5 Mg Tab) 5 mg PO DAILY [facility] Stop: 09/30/21 08:59 Last Admin: 09/01/21 07:56 Dose: 5 mg Documented by: (1) Pulmonary emboli Pulmonary embolism type: multiple subsegmental (without acute cor pulmonale) Qualified Code(s): I26.94 - Multiple subsegmental pulmonary emboli without acute cor pulmonale
[2021-09-01] MEDS: DOXYCYCLINE HYCLATE 100 MG in DEXTROSE 5% 100 ML IV SCH (13:34)
--- NOTE | 2021-09-02 08:17 | Discharge Summary ---
Date of Service September 02, 2021 Admission HPI Per Admitting Provider DICTATED BY:Ishan Mccoy MD DATE OF ADMISSION: 08/30/2021. CHIEF COMPLAINT: Bilateral PE. HISTORY OF PRESENT ILLNESS: A 76-year-old male with past medical history significant for steroid-induced diabetes mellitus, hyperlipidemia, interstitial lung disease, nonspecific interstitial pneumonia, obstructive sleep apnea, on CPAP, mitral and aortic valve regurgitation, diastolic dysfunction, BPH, history of prostate cancer, connective tissue disease, polyarthropathy, bilateral hearing loss, history of malignant melanoma of skin, history of COVID-19 last year, who presents with shortness of breath and chest pain, and found to have bilateral PE. The patient says on 08/15/2021, he underwent excision of the melanoma on his left leg near the popliteal region and also sentinel lymph node biopsy in left groin which seems for metastatic melanoma and on 08/27/2021, noticed pain on taking a deep breath pain in his left lower cage and upper abdomen and he went to see family doctor on last Saturday and was prescribed Keflex for possible infection at the excision site of the melanoma, but last night, yesterday, he was having fever, chills, temperature 101. He went to family doctor today again and complained of again chest pain in the left lower ribcage, more when taking deep breath. CT scan was done and showed bilateral lower lobe PEs and he was advised to come to the hospital. PCP also added Bactrim today , but he did not take the Bactrim yet. In the ER, lower extremity Doppler was negative . Currently, resting comfortably and hemodynamically stable, saturating fine on room air. Has some low-grade headache. No blurred vision, no earache, no runny nose, no sore throat, no cough, no nausea. Has some shortness of breath on exertion. Appetite is down today. No abdominal pain. Normal bowel and bladder movements. No blood in the stool or black stools. Admission Exam Per Admitting Provider GENERAL: The patient is of moderate build, not in acute distress. VITAL SIGNS: Temperature 37.2, pulse 84, respiratory rate 20, blood pressure 115/90, oxygen 93% on room air. HEENT: Pupils equal, round and reactive to light. Oral mucosa moist. NECK: No JVD, no neck masses. CARDIOVASCULAR: S1 and S2 heard. Regular rate and rhythm. No murmur, no gallop. RESPIRATORY SYSTEM: Normal AP diameter. No accessory muscle use. No wheezing, no crackles. ABDOMEN: Soft, bowel sounds present, nontender, no distention. CENTRAL NERVOUS SYSTEM: Cranial nerves II-XII grossly intact, nonfocal. EXTREMITIES: Incision site sutures in the left popliteal region, but slight erythematous changes. Left groin incision site is healing. No edema seen. Principal Diagnosis Bilateral segmental and subsegmental pulmonary emboli in the lower lobes, recent melanoma surgery left popliteal fossa, stable interstitial lung disease Discharge Exam Standing alongside the bed without any acute distress Constitutional well developed and well nourished; not ill appearing Eyes PERRL, conjunctivae normal, anicteric sclerae ENMT external ear and nose normal, oropharynx normal Neck trachea midline, no thyromegaly Respiratory no respiratory distress Auscultation: + diminished lung sounds and + crackles (Bibasilar fine crackles) Cardiovascular Rate/Rhythm: regular rate and regular rhythm; not tachycardic Heart Sounds: normal S1 and normal S2; no murmur Extremities: no edema Gastrointestinal (Abdomen) Inspection/Auscultation: normal bowel sounds; abdomen not distended Percussion/Palpation: abdomen soft; abdomen nontender Discharge Data Allergies Allergy/AdvReac Type Severity Reaction Status Date / Time phenazopyridine AdvReac Intermediate TACHYCARDIA Verified 08/30/21 16:58 tamsulosin AdvReac Intermediate HYPOTENSION Verified 08/30/21 16:58 Consultations 08/30/21 20:15 ED Decision to Admit Stat Ordered Studies 08/30/21 16:29 US venous doppler [facility] Stat Hospital Course (1) Pulmonary emboli: Recent melanoma surgery and left popliteal fossa and also lymphadenectomy left inguinal area Has been sedentary for more than a week and presented with shortness of breath with exertion and lower chest pain with deep breathing CTA did not show segmental and subsegmental pulmonary emboli of the lower lobes No evidence of DVT in lower extremities Echo of the heart was unremarkable. Likely provoked thromboembolism Has been on intravenous heparin and will likely start Eliquis on discharge tomorrow Has been feeling much better since admission Has been ambulating in the room without any difficulties and denies any more chest pain Will be discharged home this afternoon on Eliquis to be continued for about 6 months We will make an appointment with his primary care physician Echo: Normal LV chamber size with moderate concentric LVH, normal LV systolic function with EF of 60 to 65%, no segmental left ventricular wall motion abnormalities, grade 1 diastolic dysfunction, right ventricular cavity size is normal and no significant valvular pathology. (2) SOB (shortness of breath): As above (3) Pleuritic chest pain: Secondary to pulmonary embolism and pleurisy (4) Recent surgical procedure on lower extremity: Left popliteal fossa melanoma surgery and left inguinal lymphadenectomy May be contributing thromboembolism He was strongly advised to make an appointment with his surgeon Has bilateral pulmonary fibrosis Seems to be stable and has been requiring any oxygen as an outpatient DVT prophylaxis IV heparin CODE STATUS Full Total Time Total Time Spent Total Time Spent (In Minutes): 35 minutes Discharge Plan Discharge Items Patient Disposition: Home - Self-Care Reason For Visit: REF BY DOC Discharge Diagnosis: Bilateral segmental and subsegmental pulmonary emboli in the lower lobes, recent melanoma surgery left popliteal fossa, stable interstitial lung disease Condition on Discharge: Fair Activity: Resume your previous activity Non-emergency contact: Primary Care Provider Call non-emergency contact if: you have any medication questions and your symptoms worsen Follow-up/Referrals: Dr Pepe Greene [Other] (Date & Time 09/19/2021 11:20 AM Provider [facility] David Almaguer MD [Primary Care Provider] - (Date & Time 09/07/2021 11:20 AM Provider David Almaguer MD Department General Internal Medicine [facility] ) Diet: Heart Healthy Addtl Attending Provider Instructions: Please take precautions to avoid fall Take your medications as advised Please keep appointments with your primary care physician and the specialist Pending Studies at Discharge: No Stand-Alone Forms: My [employer], Smoking Cessation Medications and DC Order Prescriptions: New Eliquis 5 mg (74 tabs) tablets,dose pack 5 mg PO BID Qty: 74 RF: 0 Continued atorvastatin 10 mg tablet 10 mg PO DAILY RF: 0 prednisone 5 mg tablet 5 mg PO DAILY RF: 0 atenolol 25 mg tablet 25 mg PO DAILY RF: 0 amlodipine 5 mg tablet 5 mg PO DAILY RF: 0 sulfamethoxazole-trimethoprim 800-160 mg tablet 1 tab PO BID RF: 0 cephalexin 500 mg capsule 500 mg PO BID RF: 0 albuterol sulfate 90 mcg/actuation HFA aerosol inhaler 2 puff inhalation DIRECTED PRN (Reason: Shortness Of Breath) RF: 0 acetaminophen [Tylenol Extra Strength] 500 mg Tablet 500 - 1,000 mg PO DIRECTED PRN (Reason: PAIN/FEVER) RF: 0 Discharge Orders: Discharge Order (Routine); Ordered 09/01/21 Ordered By: Aminah Landa Admission Data Admit Date/Time: 08/30/21 22:22 Attending Provider: Aminah Landa Admit Provider: Ishan Mccoy Primary Care Provider: David Almaguer Other Providers: Ishan Mccoy ; Bren Colin I. Other Interventions: Discharge Summary Assessment (RN) Last Done: 09/01/21 13:25
== END 2021-09-01 14:28 | disposition home or self-care (01) | DRG 176 ==
LOC: ED 16:08 → SUATTDRO 22:22 → EDINP 22:22 → 2N 22:55

== ENCOUNTER 2022-07-08 07:26 | Inpatient (IN) ==
[2022-07-08] MEDS ORDERED: SODIUM CHLORIDE 0.9% 1000ML 1,000 ML IV ONE (07:59)
--- NOTE | 2022-07-08 08:03 | Emergency Department Note ---
Impression & Plan COVID-19, Small bowel obstruction ED Provider Note Name: ELFEGO LARRY Age: 77 Sex: M Arrives Via: Ambulance Informant: Patient ED Provider: Jacky Salinas MD Chief Complaint: abdominal pain Impression: As per impressions above Medical Decision Makin-year-old gentleman with a history of PE, ILD, dyslipidemia, hypertension who arrives for evaluation of increasing abdominal discomfort several days into a developing COVID-19. On examination patient does have a mildly distended nontender abdomen. He has mild cough but notes his symptoms have been improving for his COVID symptoms over the last 5 days. I did obtain COVID testing which was positive. CT of the abdomen pelvis reveals acute obstruction small bowel with transition point in the right lower quadrant. He did have a previous hernia repair there as a teenager as well as several hernia repairs of periumbilical area few decades ago. She is not actively vomiting but in the setting of distended abdomen and nausea will go ahead with NG tube. Patient given small dose of Versed prior to this and tolerating it well. It was a bit uncomfortable afterwards and thus some IV Dilaudid was given however he does not have significant abdominal pain at this time. I reviewed the case with the on- call surgeon who agreed with hospitalization but given his medical issues along with his positive COVID I did consult hospitalist for further management. Prior Medical Record and Triage/Nursing Notes reviewed by Me Additional history obtained from chart Differentials:Gastroenteritis, food borne illness, infections, appendicitis, diverticulitis, inflammatory bowel disease, obstruction, GI bleed, biliary pathology, volvulus, as well as other pathologies. Vital Signs: reviewed and remarkable for no significant abnormalities Interventions: versed iv, dilaudid iv, nss bolus Labs:Reviewed and remarkable for covid + Imaging:CT abdomen pelvis with IV contrast reveals acute small bowel obstruction transition point in the right lower quadrant as per radiologist. Consults:Dr Brennan [place] Gen Surg. Dr Davin العلي Hospitalist Plan: Disposition:Hospitalization. Condition: Good History of Present Illness:77-year-old gentleman arrives for evaluation of abdominal pain. Patient notes diffuse abdominal pain over the last 5 days. Gradually worsening. This morning quite severe and is all over her abdomen. He does note he gets better if he gets up and slowly walks around. He feels his abdomen is distended. Initially the pain was in the right lower quadrant but is gone throughout the entire abdomen. Patient admits that he was diagnosed with COVID on Saturday with fevers, chills, cough, congestion but those symptoms have significantly improved. He states his cough is improving. 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 He denies any falls, trauma, injuries. He does note a history of hernia repair umbilical. He denies any vomiting but does note he sometimes gets nauseous. He has not had any black or bloody stools and notes that his stool is just somewhat loose. No urinary or other complaints. Denies any leg swelling, calf pain, rashes, chest pain, headache, neck pain, syncope or other concerning signs or symptoms. No medications prior to arrival. Symptoms are better with getting up and walking around gently. They are much worse with palpation of abdomen. ROS: See above HPI for pertinent positives & negatives. A total of 10 systems reviewed and were otherwise negative. Past Medical History:Hypertension, ILD, dyslipidemia, previous PE Past Surgical History:Repair Family History:See Below Social History:See Below Home Medications:See Below Allergies:pyridium, tamsulosin Vitals:Blood Pressure: 133/78, Pulse 71, RR 20, T 37.2C, O2 95% on RA Physical Exam: GENERAL: Patient is uncomfortable appearing and in mild distress. Declines pain medications EYES: No scleral icterus, unremarkable pupils. ENT: Mucous membranes moist, no nasal congestion. NECK: No masses appreciated, nomeningismus, trachea is midline. RESPIRATORY: No dyspnea. Clear to auscultation and equal bilaterally. No wheeze, no rhonchi. CARDIOVASCULAR: Regular rate and rhythm.No murmurs, rubs, gallops appreciated. GASTROINTESTINAL: Mildly distended, TTP RLQ moderate, mild diffuse TTP.Bowel sounds positive.No masses appreciated. BACK: No midline tenderness, no CVA tenderness EXTREMITIES: Normal motion all extremities, no cyanosis, no edema. NEUROLOGIC: Alert and oriented, no acute motor or sensory deficits, no focal weakness, cranial nerves grossly intact. SKIN: No rash, no jaundice, no diaphoresis. PSYCH: Appropriate GCS: 15 ED Course: Times/Reassessments: Patient stable throughout oxygen sats good and he tolerated placement of NG tube. Jacky Salinas MD Past Med/Surg History Medical History (Updated 07/08/22 @ 15:03 by Jacyk Salinas MD) Constipation COVID-19 Transurethral prostatectomy (05/14/13) Surgical History (Updated 07/08/22 @ 11:38 by Tho Jin MD) H/O hernia repair S/P TURP Family History Father Heart disease Lung disease Social History Smoking Status: Former smoker Tobacco Type: Cigarettes Hx Alcohol Use: Yes Hx Substance Use: No Preferred Language: Togolese Communication Ability: Effective Pull Worker Required: No Beliefs That Will Affect Care: None marital status: Current Living Situation: Spouse Feels Safe at Home: Yes Assistive Devices: CPAP Allergies Allergies Allergy/AdvReac Type Severity Reaction Status Date / Time phenazopyridine AdvReac Intermediate TACHYCARDIA Verified 08/30/21 16:58 tamsulosin AdvReac Intermediate HYPOTENSION Verified 08/30/21 16:58 Home Meds Home Medications Medication Instructions Recorded Confirmed acetaminophen 500 mg tablet 500 - 1,000 mg PO DIRECTED PRN 08/30/21 07/08/22 (Tylenol Extra Strength) PAIN/FEVER albuterol sulfate 90 mcg/actuation 2 puff inhalation DIRECTED PRN 08/30/21 07/08/22 aerosol inhaler Shortness Of Breath amlodipine 5 mg tablet 5 mg PO DAILY 08/30/21 07/08/22 atenolol 25 mg tablet 25 mg PO DAILY 08/30/21 07/08/22 atorvastatin 10 mg tablet 10 mg PO DAILY 08/30/21 07/08/22 prednisone 5 mg tablet 5 mg PO DAILY 08/30/21 07/08/22 Results & Data (ED) Vital Signs Vital Signs - 24 hr 07/08/22 07:47 07/08/22 07:42 07/08/22 08:00 Temperature 37.2 C Temperature Source Oral Pulse Rate 71 71 Pulse Rate from SpO2 Sensor 71 Pulse Rhythm Regular Pulse Strength Normal Respiratory Rate 20 17 Respiratory Effort / Characteristics Non-Labored Spontaneous Respiratory Depth Normal Respiratory Pattern Regular Blood Pressure 133/78 122/80 Blood Pressure Mean 96 94 Blood Pressure Position Sitting Pulse Oximetry 95 95 Oxygen Delivery Method Room Air Sepsis Recent Fever Within 48 Hours No Sepsis New/Unexplained Change in Mental Status N/A Sepsis Action Taken by Nursing No Action Required 07/08/22 08:00 07/08/22 08:30 07/08/22 08:30 Temperature Temperature Source Pulse Rate 71 58 L Pulse Rate from SpO2 Sensor 71 57 L Pulse Rhythm Pulse Strength Respiratory Rate 18 19 Respiratory Effort / Characteristics Respiratory Depth Respiratory Pattern Blood Pressure 109/66 Blood Pressure Mean 80 Blood Pressure Position Pulse Oximetry 95 94 Oxygen Delivery Method Sepsis Recent Fever Within 48 Hours Sepsis New/Unexplained Change in Mental Status Sepsis Action Taken by Nursing 07/08/22 09:00 07/08/22 09:30 07/08/22 10:00 Temperature Temperature Source Pulse Rate 61 76 67 Pulse Rate from SpO2 Sensor 74 69 Pulse Rhythm Pulse Strength Respiratory Rate 16 18 20 Respiratory Effort / Characteristics Respiratory Depth Respiratory Pattern Blood Pressure Blood Pressure Mean Blood Pressure Position Pulse Oximetry 97 98 Oxygen Delivery Method Sepsis Recent Fever Within 48 Hours Sepsis New/Unexplained Change in Mental Status Sepsis Action Taken by Nursing Laboratory Data Result diagrams: 07/08/22 08:52 07/08/22 08:52 Lab Results 07/08/22 07/08/22 07/08/22 Range/Units 08:52 08:52 08:57 WBC 10.43 (4.8-10.8) K/ul RBC 5.57 (4.63-6.08) M/uL Hgb 17.1 (14.0-18.0) g/dl POC Hgb 16.7 (14.0-18.0) g/dl Hct 50.8 (40.1-51.0) % POC Hct 49 (42-52) % MCV 91.2 (80.0-100.0) fL MCH 30.7 (25.0-34.0) pg MCHC 33.7 (32.0-36.0) g/dL RDW Std Deviation 44.0 (36.4-46.3) fL RDW Coeff of Andrew 13.0 (11.5-14.5) % Plt Count 244 (130-400) K/uL MPV 10.5 (9.4-12.4) fL Immature Gran % (Auto) 0.5 % Neut % (Auto) 75.6 % Lymph % (Auto) 12.6 % Weston % (Auto) 9.5 % Eos % (Auto) 1.3 % Baso % (Auto) 0.5 % Neut # (Auto) 7.89 H (1.4-6.5) K/uL Lymph # (Auto) 1.31 (1.2-3.4) K/uL Weston # (Auto) 0.99 H (0.24-0.82) K/uL Eos # (Auto) 0.14 (0-0.50) K/uL Baso # (Auto) 0.05 (0-0.2) K/uL Immature Gran # (Auto) 0.05 H (0.00-0.02) K/uL POC Sodium 140 (135-144) mmol/L Sodium 141 (136-145) mmol/L POC Potassium 4.3 (3.3-5.0) mmol/L Potassium 4.1 (3.5-5.1) mmol/L POC Chloride 105 (101-112) mmol/L Chloride 105 (98-107) mmol/L Carbon Dioxide 26 (21-32) mmol/L POC Total CO2 27 (24-31) mmol/L Anion Gap 10 (3-11) POC Anion Gap 14.0 L (16-25) mmol/L POC BUN 23 H (7-18) mg/dl BUN 20 (6-23) mg/dl Creatinine 0.95 (0.6-1.4) mg/dl POC Creatinine 1.0 (0.6-1.3) mg/dl Est Cr Clr Drug Dosing 65.8 ml/min Est GFR ( Amer) 89.1 ml/min Est GFR (Non-Af Amer) 76.9 ml/min BUN/Creatinine Ratio 21.1 H (10-20) Glucose 113 H (70-99(Fasting)) mg/dl POC Glucose (other) 113 H (70-99) mg/dl Calcium 9.2 (8.5-10.1) mg/dl POC Ioniz Calcium Karsten 1.12 (1.12-1.32) mmol/l Magnesium 2.2 (1.7-2.4) mg/dl Total Bilirubin 0.9 (0.2-1.0) mg/dl Direct Bilirubin 0.2 (0-0.2) mg/dl AST 12 L (13-39) U/L ALT 11 (7-52) U/L Alkaline Phosphatase 79 (34-104) U/L Total Protein 6.9 (6.0-8.3) gm/dl Albumin 4.1 (3.4-5.0) gm/dl Lipase 14 (11-82) U/L SARS-CoV-2 (PCR) (Negative) 07/08/22 Range/Units 09:58 WBC (4.8-10.8) K/ul RBC (4.63-6.08) M/uL Hgb (14.0-18.0) g/dl POC Hgb (14.0-18.0) g/dl Hct (40.1-51.0) % POC Hct (42-52) % MCV (80.0-100.0) fL MCH (25.0-34.0) pg MCHC (32.0-36.0) g/dL RDW Std Deviation (36.4-46.3) fL RDW Coeff of Andrew (11.5-14.5) % Plt Count (130-400) K/uL MPV (9.4-12.4) fL Immature Gran % (Auto) % Neut % (Auto) % Lymph % (Auto) % Weston % (Auto) % Eos % (Auto) % Baso % (Auto) % Neut # (Auto) (1.4-6.5) K/uL Lymph # (Auto) (1.2-3.4) K/uL Weston # (Auto) (0.24-0.82) K/uL Eos # (Auto) (0-0.50) K/uL Baso # (Auto) (0-0.2) K/uL Immature Gran # (Auto) (0.00-0.02) K/uL POC Sodium (135-144) mmol/L Sodium (136-145) mmol/L POC Potassium (3.3-5.0) mmol/L Potassium (3.5-5.1) mmol/L POC Chloride (101-112) mmol/L Chloride (98-107) mmol/L Carbon Dioxide (21-32) mmol/L POC Total CO2 (24-31) mmol/L Anion Gap (3-11) POC Anion Gap (16-25) mmol/L POC BUN (7-18) mg/dl BUN (6-23) mg/dl Creatinine (0.6-1.4) mg/dl POC Creatinine (0.6-1.3) mg/dl Est Cr Clr Drug Dosing ml/min Est GFR ( Amer) ml/min Est GFR (Non-Af Amer) ml/min BUN/Creatinine Ratio (10-20) Glucose (70-99(Fasting)) mg/dl POC Glucose (other) (70-99) mg/dl Calcium (8.5-10.1) mg/dl POC Ioniz Calcium Karsten (1.12-1.32) mmol/l Magnesium (1.7-2.4) mg/dl Total Bilirubin (0.2-1.0) mg/dl Direct Bilirubin (0-0.2) mg/dl AST (13-39) U/L ALT (7-52) U/L Alkaline Phosphatase (34-104) U/L Total Protein (6.0-8.3) gm/dl Albumin (3.4-5.0) gm/dl Lipase (11-82) U/L SARS-CoV-2 (PCR) POSITIVE A* (Negative) Administered Medications Hydromorphone HCl (Hydromorphone Inj 0.5 Mg/0.5 Ml Syr) 0.5 mg IV Q15M PRN PRN Reason: Pain Stop: 07/22/22 12:50 Last Admin: 07/08/22 13:19 Dose: 0.5 mg Documented By: CELESTINE Discontinued Medications Sodium Chloride (Nss 1000ml) 1,000 mls @ 999 mls/hr IV .Q1H1M ONE Stop: 07/08/22 08:59 Last Infusion: 07/08/22 10:55 Dose: 0 mls/hr Documented By: Admin: 07/08/22 09:03 Dose: 999 mls/hr Documented By: CELESTINE Ioversol (Optiray 350 100ml) 90 ml IV ONCE ONE Stop: 07/08/22 09:20 Last Admin: 07/08/22 09:19 Dose: 90 ml Documented By: EMPERATRIZ Midazolam HCl (Midazolam Hcl 1 Mg/Ml 2ml Vial) 1 mg IV NOW STA Stop: 07/08/22 10:11 Last Admin: 07/08/22 11:06 Dose: 1 mg Documented By: CELESTINE Imaging Data Radiologist's Impression: Abdomen/Pelvis CT 07/08/22 07:[address] WITH IV CONTRAST CT DOSE: 573.15 mGy.cm HISTORY: Acute generalized abdominal pain. COVID Positive. diffuse abdominal pain, covid + TECHNIQUE: Multiaxial CT images of the abdomen and pelvis were performed f ollowing the IV administration of 90 cc of Optiray, A dose lowering technique was utilized adhering to the principles of ALARA. COMPARISON STUDY: CT abdomen and pelvis 07/19/2014, CTA chest 08/30/2021. FINDINGS: Coronary artery calcifications.. Bibasilar reticular interstitial densities with groundglass opacities are similar to prior suggestive of atelectasis/scarring. No pneumatosis or pneumoperitoneum. The spleen, pancreas, gallbladder, adrenal glands and liver appear unremarkable. Patency of the hepatic and portal veins. Bilateral renal cysts are noted measuring up to 3.3 cm within the inferior pole left kidney along with subcentimeter hypodensities which are too small to characterize. There is a 1.4 cm hypodense lesion of the lateral interpolar right kidney with Hounsfield unit of 79. On the 2013 study this lesion appears to represent a simple cyst. Interval change favors a hemorrhagic or proteinaceous cyst. 3 mm nonobstructing calculus of the superior pole left kidney. No ureteral calculi or hydronephrosis. Urinary bladder wall thickening with partial distention. Prostamegaly. Atherosclerosis of the aorta without aneurysm. No lymphadenopathy. Numerous dilated air and fluid-filled loops of small bowel measure up to approximately 3.7 cm. Trace free pelvic fluid with interloop edema. Transition point is noted involving a loop of ileum within the abdominal right lower quadr ant on image 239 with decompressed distal ileum. Colonic diverticulosis with mild colonic fecal retention. Air-fluid levels are noted within the cecum, ascending and transverse colon. Normal appendix. Small periumbilical fat filled hernias are noted. Degenerative changes of the spine, pelvis and hips. No acute fracture notified. IMPRESSION: 1. Small bowel obstruction with transition point within the abdominal right lower quadrant, likely secondary to adhesions. Trace interloop edema with free pelvic fluid. 2. No pneumoperitoneum. 3. Left nephrolithiasis. 4. Bilateral renal cysts with 1.4 cm hyperdense lesion of the interpolar right kidney favoring a complex cyst. This could be confirmed with a nonemergent follow-up renal ultrasound. 5. Additional findings as above. ACT 112: Negative or not required by law. The above report was generated using voice recognition software. It may contain grammatical, syntax or spelling errors. Electronically signed by: Cyrus Larsen M.D. 07/08/2022 9:55 AM Discharge Plan Visit Data Chief Complaint: Abdominal Pain Stated Complaint: AB PAIN, COUGH, COVID + ED Provider: Jacky Salinas Discharge Problem: COVID-19, Small bowel obstruction Discharge Instructions Interventions: ED Discharge Assessment Last Done: 07/08/22 14:14
[2022-07-08 09:04] LABS: Basophils # (auto) 0.05 K/uL (0-0.2); Basophils % (auto) 0.5 %; Eosinophils # (auto) 0.14 K/uL (0-0.50); Eosinophils % (auto) 1.3 %; Hematocrit (blood only) 50.8 % (40.1-51.0); Hemoglobin 17.1 g/dl (14.0-18.0); Immature Granulocytes # (auto) 0.05 K/uL (0.00-0.02); Immature Granulocytes % (auto) 0.5 %; Lymphocytes # (auto) 1.31 K/uL (1.2-3.4); Lymphocytes % (auto) 12.6 %; Mean Corpuscular Hemoglobin 30.7 pg (25.0-34.0); Mean Corpuscular Hgb Conc 33.7 g/dL (32.0-36.0); Mean Corpuscular Volume 91.2 fL (80.0-100.0); Mean Platelet Volume 10.5 fL (9.4-12.4); Monocytes # (auto) 0.99 K/uL (0.24-0.82); Monocytes % (auto) 9.5 %; Neutrophils # (auto) 7.89 K/uL (1.4-6.5); Neutrophils % (auto) 75.6 %; Platelet Count 244 K/uL (130-400); Red Blood Count 5.57 M/uL (4.63-6.08); White Blood Count 10.43 K/ul (4.8-10.8)
[2022-07-08 09:11] LABS: iSTAT Hemoglobin 16.7 g/dl (14.0-18.0); iSTAT Ionized Calcium 1.12 mmol/l (1.12-1.32); iSTAT Potassium 4.3 mmol/L (3.3-5.0)
[2022-07-08] MEDS ORDERED: OPTIRAY 350 100ml IV ONE (09:19)
[2022-07-08 09:24] LABS: Albumin Level 4.1 gm/dl (3.4-5.0); BUN Creatinine Ratio 21.1 (10-20); Bilirubin Direct 0.2 mg/dl (0-0.2); Bilirubin,Total 0.9 mg/dl (0.2-1.0); Calcium 9.2 mg/dl (8.5-10.1); Creatinine Clr Calc Pharmacy 65.8 ml/min; Est GFR (African American) 89.1 ml/min; Est GFR (Non-African American) 76.9 ml/min; Magnesium 2.2 mg/dl (1.7-2.4); Potassium 4.1 mmol/L (3.5-5.1); Total Protein 6.9 gm/dl (6.0-8.3)
--- NOTE | 2022-07-08 09:57 | CT Scan Report ---
ABDOMEN AND PELVIS CT WITH IV CONTRAST CT DOSE: 573.15 mGy.cm HISTORY: Acute generalized abdominal pain. COVID Positive. diffuse abdominal pain, covid + TECHNIQUE: Multiaxial CT images of the abdomen and pelvis were performed following the IV administrat ion of 90 cc of Optiray, A dose lowering technique was utilized adhering to the principles of ALARA. COMPARISON STUDY: CT abdomen and pelvis 07/19/2014, CTA chest 08/30/2021. FINDINGS: Coronary artery calcifications.. Bibasilar reticular interstitial densities with groundglas s opacities are similar to prior suggestive of atelectasis/scarring. No pneumatosis or pneumoperitone um. The spleen, pancreas, gallbladder, adrenal glands and liver appear unremarkable. Patency of the h epatic and portal veins. Bilateral renal cysts are noted measuring up to 3.3 cm within the inferior pole left kidney along wit h subcentimeter hypodensities which are too small to characterize. There is a 1.4 cm hypodense lesion of the lateral interpolar right kidney with Hounsfield unit of 79. On the 2013 study this lesion vandana ears to represent a simple cyst. Interval change favors a hemorrhagic or proteinaceous cyst. 3 mm non obstructing calculus of the superior pole left kidney. No ureteral calculi or hydronephrosis. Urinary bladder wall thickening with partial distention. Prostamegaly. Atherosclerosis of the aorta without aneurysm. No lymphadenopathy. Numerous dilated air and fluid-filled loops of small bowel measure up to approximately 3.7 cm. Trace free pelvic fluid with interloop edema. Transition point is noted involving a loop of ileum within th e abdominal right lower quadrant on image 239 with decompressed distal ileum. Colonic diverticulosis with mild colonic fecal retention. Air-fluid levels are noted within the cecum, ascending and transve rse colon. Normal appendix. Small periumbilical fat filled hernias are noted. Degenerative changes of the spine, pelvis and hips. No acute fracture notified. IMPRESSION: 1. Small bowel obstruction with transition point within the abdominal right lower quadrant, likely se condary to adhesions. Trace interloop edema with free pelvic fluid. 2. No pneumoperitoneum. 3. Left nephrolithiasis. 4. Bilateral renal cysts with 1.4 cm hyperdense lesion of the interpolar right kidney favoring a comp bhavani cyst. This could be confirmed with a nonemergent follow-up renal ultrasound. 5. Additional findings as above. ACT 112: Negative or not required by law. The above report was generated using voice recognition software. It may contain grammatical, syntax o r spelling errors. Electronically signed by: Cyrus Larsen M.D. 07/08/2022 9:55 AM
[2022-07-08] MEDS ORDERED: MIDAZOLAM HCL 1 MG/ML 2ML VIAL IV STA (10:10)
--- NOTE | 2022-07-08 11:30 | History & Physical Report ---
Date of Service July 08, 2022 Assessment & Plan (1) Small bowel obstruction: Plan: Patient presents with abdominal pain for several days however now worsened Per CT abd./pelvis - Small bowel obstruction with transition point within the abdominal right lower quadrant, likely secondary to adhesions Surgery consulted by ED. NG tube recommended. NG tube to be placed NPO IVF pain control monitor electrolytes and replace as needed (2) COVID-19: Plan: No respiratory symptoms at this time. Patient is saturating 98% on room air. Patient has history of interstitial lung disease, for which he takes prednisone daily and as needed albuterol. Patient reports he did not need to use albuterol in a while. No treatment for COVID at this time needed. Will continue to closely monitor HTN At home patient takes amlodipine and atenolol -For now we will hold home medications and will use IV metoprolol HLD -At home patient takes atorvastatin -For now we will hold, will resume when patient able to take p.o. DVT ppx: lovenox Code: Full History of Present Illness Chief Complaint: Abdominal pain Primary Care Provider: David Almaguer MD Patient is a 77-year-old male, with history of interstitial lung disease, BPH, prostate cancer, NED on CPAP, hypertension hyperlipidemia, history of melanoma, history of PE, history of hernia repair and TURP, now presents with abdominal pain. Since Saturday, about 4 to 5 days ago, patient has been having upper respiratory symptoms, and feeling weak. He reports that he checked his pulse ox and it was never below 93%. He tested positive for COVID yesterday at home. He reports feeling better from his respiratory symptoms and weakness. However he also developed abdominal pain several days ago and that has been getting worse. Today he reports that his abdominal pain was so severe that he had to present to the hospital. He was unable to take his medication this morning. His abdominal pain is mostly in lower quadrants however his entire abdomen feels distended and painful. Initially he felt he was very bloated, and he also reports that he was having bowel movement yesterday. Today he reports very small bowel movement, and minimal passing flatus. Denies any blood in the stool. He is sitting up in bed, in no acute distress, however reports abdominal pain. He denies any fevers or chills lately. He said he never checked his temperature at home. His breathing is at baseline per patient. And he is breathing comfortably on room air. Denies any chest pain or palpitations. In the ED patient was diagnosed with COVID, and also CT of his abdomen was obtained. That showed small bowel obstruction and surgery was consulted. They recommended NG tube. NG tube was ordered and will be placed. Allergies Allergy/AdvReac Type Severity Reaction Status Date / Time phenazopyridine AdvReac Intermediate TACHYCARDIA Verified 08/30/21 16:58 tamsulosin AdvReac Intermediate HYPOTENSION Verified 08/30/21 16:58 Home Medications Medication Instructions Recorded Confirmed Type acetaminophen 500 mg tablet 500 - 1,000 mg PO DIRECTED PRN 08/30/21 07/08/22 History (Tylenol Extra Strength) PAIN/FEVER albuterol sulfate 90 mcg/actuation 2 puff inhalation DIRECTED PRN 08/30/21 07/08/22 History aerosol inhaler Shortness Of Breath amlodipine 5 mg tablet 5 mg PO DAILY 08/30/21 07/08/22 History atenolol 25 mg tablet 25 mg PO DAILY 08/30/21 07/08/22 History atorvastatin 10 mg tablet 10 mg PO DAILY 08/30/21 07/08/22 History prednisone 5 mg tablet 5 mg PO DAILY 08/30/21 07/08/22 History Past Med/Surg History Medical History (Updated 07/08/22 @ 11:51 by Tho Jni MD) Constipation COVID-19 Transurethral prostatectomy (05/14/13) Surgical History (Updated 07/08/22 @ 11:38 by Tho Jin MD) H/O hernia repair S/P TURP Family History Father Heart disease Lung disease Social History Smoking Status: Former smoker Tobacco Type: Cigarettes Hx Alcohol Use: Yes Hx Substance Use: No Preferred Language: Kazakh Communication Ability: Effective Test Specialist Required: No Beliefs That Will Affect Care: None marital status: Current Living Situation: Spouse Feels Safe at Home: Yes Assistive Devices: CPAP Review of Systems Review of Systems: All systems reviewed & are unremarkable except as noted in HPI & below Physical Exam Constitutional: WD/WN, vitals as above Eyes: PERRL, conjunctivae normal, anicteric sclerae ENMT: external ear and nose normal, oropharynx normal Neck: trachea midline, no thyromegaly Respiratory: normal respiratory effort, lungs clear to auscultation (min. rhonchi) Cardiovascular: RRR, no murmur, no edema Chest (Breasts): Chest: normal inspection of chest Gastrointestinal (Abdomen): Inspection/Auscultation: + abdomen distended (sluggish BS, TTP at RLQ) Musculoskeletal: no cyanosis or clubbing, extremities motor strength 5/5 Skin: no rashes, warm and dry Neurologic: PERRL, EOMI, accommodation nl, no face palsy, no dysarthria Psychiatric: A+Ox3, euthymic affect Genitourinary: no CVA tenderness Lymphatic: no lymphedema Results & Data Results & Data ([facility]) Vital Signs (Past 12 Hours) Vital Signs Temp Pulse Resp BP Pulse Ox O2 Del Method 07/08/22 10:00 67 20 98 07/08/22 09:30 76 18 97 07/08/22 09:00 61 16 07/08/22 08:30 58 L 19 94 07/08/22 08:30 109/66 07/08/22 08:00 71 18 95 07/08/22 08:00 122/80 07/08/22 07:42 71 17 95 07/08/22 07:47 37.2 C 71 20 133/78 95 Room Air Laboratory Results 07/08/22 07/08/22 07/08/22 Range/Units 09:58 08:57 08:52 WBC (4.8-10.8) K/ul RBC (4.63-6.08) M/uL Hgb (14.0-18.0) g/dl POC Hgb 16.7 (14.0-18.0) g/dl Hct (40.1-51.0) % POC Hct 49 (42-52) % MCV (80.0-100.0) fL MCH (25.0-34.0) pg MCHC (32.0-36.0) g/dL RDW Std Deviation (36.4-46.3) fL RDW Coeff of Andrew (11.5-14.5) % Plt Count (130-400) K/uL MPV (9.4-12.4) fL Immature Gran % (Auto) % Neut % (Auto) % Lymph % (Auto) % [place] % (Auto) % Eos % (Auto) % Baso % (Auto) % Neut # (Auto) (1.4-6.5) K/uL Lymph # (Auto) (1.2-3.4) K/uL [place] # (Auto) (0.24-0.82) K/uL Eos # (Auto) (0-0.50) K/uL Baso # (Auto) (0-0.2) K/uL Immature Gran # (Auto) (0.00-0.02) K/uL POC Sodium 140 (135-144) mmol/L Sodium 141 (136-145) mmol/L POC Potassium 4.3 (3.3-5.0) mmol/L Potassium 4.1 (3.5-5.1) mmol/L POC Chloride 105 (101-112) mmol/L Chloride 105 (98-107) mmol/L Carbon Dioxide 26 (21-32) mmol/L POC Total CO2 27 (24-31) mmol/L Anion Gap 10 (3-11) POC Anion Gap 14.0 L (16-25) mmol/L POC BUN 23 H (7-18) mg/dl BUN 20 (6-23) mg/dl Creatinine 0.95 (0.6-1.4) mg/dl POC Creatinine 1.0 (0.6-1.3) mg/dl Est Cr Clr Drug Dosing 65.8 ml/min Est GFR ( Amer) 89.1 ml/min Est GFR (Non-Af Amer) 76.9 ml/min BUN/Creatinine Ratio 21.1 H (10-20) Glucose 113 H (70-99(Fasting)) mg/dl POC Glucose (other) 113 H (70-99) mg/dl Calcium 9.2 (8.5-10.1) mg/dl POC Ioniz Calcium Karsten 1.12 (1.12-1.32) mmol/l Magnesium 2.2 (1.7-2.4) mg/dl Total Bilirubin 0.9 (0.2-1.0) mg/dl Direct Bilirubin 0.2 (0-0.2) mg/dl AST 12 L (13-39) U/L ALT 11 (7-52) U/L Alkaline Phosphatase 79 (34-104) U/L Total Protein 6.9 (6.0-8.3) gm/dl Albumin 4.1 (3.4-5.0) gm/dl Lipase 14 (11-82) U/L SARS-CoV-2 (PCR) POSITIVE A* (Negative) 07/08/22 Range/Units 08:52 WBC 10.43 (4.8-10.8) K/ul RBC 5.57 (4.63-6.08) M/uL Hgb 17.1 (14.0-18.0) g/dl POC Hgb (14.0-18.0) g/dl Hct 50.8 (40.1-51.0) % POC Hct (42-52) % MCV 91.2 (80.0-100.0) fL MCH 30.7 (25.0-34.0) pg MCHC 33.7 (32.0-36.0) g/dL RDW Std Deviation 44.0 (36.4-46.3) fL RDW Coeff of Andrew 13.0 (11.5-14.5) % Plt Count 244 (130-400) K/uL MPV 10.5 (9.4-12.4) fL Immature Gran % (Auto) 0.5 % Neut % (Auto) 75.6 % Lymph % (Auto) 12.6 % [place] % (Auto) 9.5 % Eos % (Auto) 1.3 % Baso % (Auto) 0.5 % Neut # (Auto) 7.89 H (1.4-6.5) K/uL Lymph # (Auto) 1.31 (1.2-3.4) K/uL [place] # (Auto) 0.99 H (0.24-0.82) K/uL Eos # (Auto) 0.14 (0-0.50) K/uL Baso # (Auto) 0.05 (0-0.2) K/uL Immature Gran # (Auto) 0.05 H (0.00-0.02) K/uL POC Sodium (135-144) mmol/L Sodium (136-145) mmol/L POC Potassium (3.3-5.0) mmol/L Potassium (3.5-5.1) mmol/L POC Chloride (101-112) mmol/L Chloride (98-107) mmol/L Carbon Dioxide (21-32) mmol/L POC Total CO2 (24-31) mmol/L Anion Gap (3-11) POC Anion Gap (16-25) mmol/L POC BUN (7-18) mg/dl BUN (6-23) mg/dl Creatinine (0.6-1.4) mg/dl POC Creatinine (0.6-1.3) mg/dl Est Cr Clr Drug Dosing ml/min Est GFR ( Amer) ml/min Est GFR (Non-Af Amer) ml/min BUN/Creatinine Ratio (10-20) Glucose (70-99(Fasting)) mg/dl POC Glucose (other) (70-99) mg/dl Calcium (8.5-10.1) mg/dl POC Ioniz Calcium [place] (1.12-1.32) mmol/l Magnesium (1.7-2.4) mg/dl Total Bilirubin (0.2-1.0) mg/dl Direct Bilirubin (0-0.2) mg/dl AST (13-39) U/L ALT (7-52) U/L Alkaline Phosphatase (34-104) U/L Total Protein (6.0-8.3) gm/dl Albumin (3.4-5.0) gm/dl Lipase (11-82) U/L SARS-CoV-2 (PCR) (Negative) Diagnostic Findings CT abd./pelvis FINDINGS: Coronary artery calcifications.. Bibasilar reticular interstitial densities with groundglass opacities are similar to prior suggestive of atelectasis/scarring. No pneumatosis or pneumoperitoneum. The spleen, pancreas, gallbladder, adrenal glands and liver appear unremarkable. Patency of the hepatic and portal veins. Bilateral renal cysts are noted measuring up to 3.3 cm within the inferior pole left kidney along with subcentimeter hypodensities which are too small to characterize. There is a 1.4 cm hypodense lesion of the lateral interpolar right kidney with Hounsfield unit of 79. On the 2013 study this lesion appears to represent a simple cyst. Interval change favors a hemorrhagic or proteinaceous cyst. 3 mm nonobstructing calculus of the superior pole left kidney. No ureteral calculi or hydronephrosis. Urinary bladder wall thickening with partial distention. Prostamegaly. Atherosclerosis of the aorta without aneurysm. No lymphadenopathy. Numerous dilated air and fluid-filled loops of small bowel measure up to approximately 3.7 cm. Trace free pelvic fluid with interloop edema. Transition point is noted involving a loop of ileum within the abdominal right lower quadrant on image 239 with decompressed distal ileum. Colonic diverticulosis with mild colonic fecal retention. Air-fluid levels are noted within the cecum, ascending and transverse colon. Normal appendix. Small periumbilical fat filled hernias are noted. Degenerative changes of the spine, pelvis and hips. No acute fracture notified. IMPRESSION: 1. Small bowel obstruction with transition point within the abdominal right lower quadrant, likely secondary to adhesions. Trace interloop edema with free pelvic fluid. 2. No pneumoperitoneum. 3. Left nephrolithiasis. 4. Bilateral renal cysts with 1.4 cm hyperdense lesion of the interpolar right kidney favoring a complex cyst. This could be confirmed with a nonemergent follow-up renal ultrasound. Code Status & VTE Plan VTE Prophylaxis Plan VTE Prophylaxis will be ordered: Yes
[2022-07-08] MEDS ORDERED: ACETAMINOPHEN 1,000 MG/100 ML VIAL IV PRN (12:00)
[2022-07-08] MEDS ORDERED: HYDROmorphone INJ 0.5 MG/0.5 ML SYR IV PRN (12:51)
[2022-07-08] MEDS: SODIUM CHLORIDE 0.9% 1000ML 1,000 ML IV SCH (14:00)
--- NOTE | 2022-07-08 14:00 | XRay Report ---
XR chest 1V portable HISTORY: 77 years-old Male NG tube placement status post placement of an enteric tube COMPARISON: CT of same day TECHNIQUE: AP view the chest FINDINGS: Status post placement of an enteric tube, distal tip projected superiorly within the gastric fundus. Cardiac silhouette is enlarged. Mild bibasilar atelectasis. No pneumothorax, pleural effusion, airspa ce consolidation or overt pulmonary edema. Degenerative changes of the shoulders and spine. IMPRESSION: Distal tip of enteric tube is projected superiorly within the gastric fundus. ACT 112: Negative or not required by law. The above report was generated using voice recognition software. It may contain grammatical, syntax o r spelling errors. Electronically signed by: Cyrus Larsen M.D. 07/08/2022 1:59 PM
[2022-07-08] MEDS: METOPROLOL TARTRATE 1 MG/ML VIAL IV SCH ×2 (15:26→18:38)
[2022-07-08] MEDS: ENOXAPARIN INJ 40 MG/0.4 ML SYR SQ SCH (15:47)
--- NOTE | 2022-07-08 18:42 | Surgery Consultation ---
Date of Consultation July 08, 2022 Assessment & Plan (1) Small bowel obstruction: 77-year-old male with recent COVID infection and small bowel obstruction likely secondary adhesions. He is not having any abdominal pain and states he has passed a small amount of gas. No surgical intervention indicated at this time Continue NG tube until passing flatus and abdominal pain and distention improves Repeat KUB in the morning Surgery will follow, call with questions or concerns (2) COVID-19: (3) Pulmonary emboli: History of Present Illness Reason for Consultation: Small bowel obstruction Attending Physician: Tho Jin MD History of Present Illness 77-year-old male with history of prior umbilical and inguinal hernia repairs in the past, presented with chief complaint of abdominal pain. He had fevers and a cough on Saturday of last week. He was passing a copious amounts of gas at that point. He did a home COVID test and was positive. Over the next few days he no longer was passing gas and began to feel bloated and was burping often. He did have a bowel movement yesterday and a small 1 this morning. He had sig nificant abdominal cramping last night. He has not had symptoms like this before. He is not on any blood thinning medications, however after a wide local excision of a melanoma with sentinel lymph node biopsy performed at [facility] he did develop some PEs and was treated with Eliquis for 3 months. Allergies Allergy/AdvReac Type Severity Reaction Status Date / Time phenazopyridine AdvReac Intermediate TACHYCARDIA Verified 08/30/21 16:58 tamsulosin AdvReac Intermediate HYPOTENSION Verified 08/30/21 16:58 Home Medications Medication Instructions Recorded Confirmed Type acetaminophen 500 mg tablet 500 - 1,000 mg PO DIRECTED PRN 08/30/21 07/08/22 History (Tylenol Extra Strength) PAIN/FEVER albuterol sulfate 90 mcg/actuation 2 puff inhalation DIRECTED PRN 08/30/21 07/08/22 History aerosol inhaler Shortness Of Breath amlodipine 5 mg tablet 5 mg PO DAILY 08/30/21 07/08/22 History atenolol 25 mg tablet 25 mg PO DAILY 08/30/21 07/08/22 History atorvastatin 10 mg tablet 10 mg PO DAILY 08/30/21 07/08/22 History prednisone 5 mg tablet 5 mg PO DAILY 08/30/21 07/08/22 History Patient History Medical History (Updated 07/08/22 @ 15:03 by Jacky Salinas MD) Constipation COVID-19 Transurethral prostatectomy (05/14/13) Surgical History (Updated 07/08/22 @ 11:38 by Tho Jin MD) H/O hernia repair S/P TURP Family History Father Heart disease Lung disease Social History Smoking Status: Never smoker Tobacco Type: Cigarettes Hx Alcohol Use: Yes Hx Substance Use: No Preferred Language: Finnish Communication Ability: Effective 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 Beliefs That Will Affect Care: None marital status: Current Living Situation: Spouse Other Information That Helps Us Care for You: No Feels Safe at Home: Yes Safety Concerns: Feels Safe At This Time Assistive Devices: CPAP Review of Systems Review of Systems: All systems reviewed & are unremarkable except as noted in HPI & below Physical Exam Constitutional: WD/WN, vitals as above Respiratory: normal respiratory effort, lungs clear to auscultation Cardiovascular: RRR, no murmur, no edema Gastrointestinal (Abdomen): normal bowel sounds, soft, nontender, no hepatosplenomegaly Inspection/Auscultation: + abdomen distended (Mild) and + abdominal surgical scar (Midline scar) Percussion/Palpation: + hernia (Small recurrent ventral hernia) Results & Data ([facility]) Vital Signs (Past 12 Hours) Vital Signs Temp Pulse Pulse Resp BP BP Pulse Ox 07/08/22 18:00 75 20 140/75 97 07/08/22 16:49 87 20 144/80 H 96 07/08/22 15:00 63 15 07/08/22 14:30 57 L 16 07/08/22 14:00 69 14 07/08/22 13:30 64 14 07/08/22 13:00 78 16 07/08/22 12:30 66 17 07/08/22 15:26 54 L 07/08/22 12:04 153/77 H 07/08/22 12:04 61 16 07/08/22 12:00 62 16 07/08/22 10:00 67 20 98 07/08/22 09:30 76 18 97 07/08/22 09:00 61 16 07/08/22 08:30 58 L 19 94 07/08/22 08:30 109/66 07/08/22 08:00 71 18 95 07/08/22 08:00 122/80 07/08/22 07:42 71 17 95 07/08/22 07:47 37.2 C 71 20 133/78 95 O2 Del Method 07/08/22 18:00 Room Air 07/08/22 16:49 Room Air 07/08/22 15:00 07/08/22 14:30 07/08/22 14:00 07/08/22 13:30 07/08/22 13:00 07/08/22 12:30 07/08/22 15:26 07/08/22 12:04 07/08/22 12:04 07/08/22 12:00 07/08/22 10:00 07/08/22 09:30 07/08/22 09:00 07/08/22 08:30 07/08/22 08:30 07/08/22 08:00 07/08/22 08:00 07/08/22 07:42 07/08/22 07:47 Room Air Laboratory Results Laboratory Results - last 24 hr 07/08/22 07/08/22 07/08/22 08:52 08:52 08:57 WBC 10.43 RBC 5.57 Hgb 17.1 POC Hgb 16.7 Hct 50.8 POC Hct 49 MCV 91.2 MCH 30.7 MCHC 33.7 RDW Std Deviation 44.0 RDW Coeff of Andrew 13.0 Plt Count 244 MPV 10.5 Immature Gran % (Auto) 0.5 Neut % (Auto) 75.6 Lymph % (Auto) 12.6 [place] % (Auto) 9.5 Eos % (Auto) 1.3 Baso % (Auto) 0.5 Neut # (Auto) 7.89 H Lymph # (Auto) 1.31 [place] # (Auto) 0.99 H Eos # (Auto) 0.14 Baso # (Auto) 0.05 Immature Gran # (Auto) 0.05 H POC Sodium 140 Sodium 141 POC Potassium 4.3 Potassium 4.1 POC Chloride 105 Chloride 105 Carbon Dioxide 26 POC Total CO2 27 Anion Gap 10 POC Anion Gap 14.0 L POC BUN 23 H BUN 20 Creatinine 0.95 POC Creatinine 1.0 Est Cr Clr Drug Dosing 65.8 Est GFR ( Amer) 89.1 Est GFR (Non-Af Amer) 76.9 BUN/Creatinine Ratio 21.1 H Glucose 113 H POC Glucose (other) 113 H Calcium 9.2 POC Ioniz Calcium Karsten 1.12 Magnesium 2.2 Total Bilirubin 0.9 Direct Bilirubin 0.2 AST 12 L ALT 11 Alkaline Phosphatase 79 Total Protein 6.9 Albumin 4.1 Lipase 14 SARS-CoV-2 (PCR) 07/08/22 09:58 WBC RBC Hgb POC Hgb Hct POC Hct MCV MCH MCHC RDW Std Deviation RDW Coeff of Andrew Plt Count MPV Immature Gran % (Auto) Neut % (Auto) Lymph % (Auto) [place] % (Auto) Eos % (Auto) Baso % (Auto) Neut # (Auto) Lymph # (Auto) [place] # (Auto) Eos # (Auto) Baso # (Auto) Immature Gran # (Auto) POC Sodium Sodium POC Potassium Potassium POC Chloride Chloride Carbon Dioxide POC Total CO2 Anion Gap POC Anion Gap POC BUN BUN Creatinine POC Creatinine Est Cr Clr Drug Dosing Est GFR ( Amer) Est GFR (Non-Af Amer) BUN/Creatinine Ratio Glucose POC Glucose (other) Calcium POC Ioniz Calcium Karsten Magnesium Total Bilirubin Direct Bilirubin AST ALT Alkaline Phosphatase Total Protein Albumin Lipase SARS-CoV-2 (PCR) POSITIVE A* Diagnostic Findings I personally reviewed and interpreted the CT scan and agree with the assessment of small bowel obstruction likely secondary to adhesions in the right lower quadrant. ABDOMEN AND PELVIS CT WITH IV CONTRAST CT DOSE: 573.15 mGy.cm HISTORY: Acute generalized abdominal pain. COVID Positive. diffuse abdominal pain, covid + TECHNIQUE: Multiaxial CT images of the abdomen and pelvis were performed following the IV administration of 90 cc of Optiray, A dose lowering technique was utilized adhering to the principles of ALARA. COMPARISON STUDY: CT abdomen and pelvis 07/19/2014, CTA chest 08/30/2021. FINDINGS: Coronary artery calcifications.. Bibasilar reticular interstitial densities with groundglass opacities are similar to prior suggestive of atelectasis/scarring. No pneumatosis or pneumoperitoneum. The spleen, pancreas, gallbladder, adrenal glands and liver appear unremarkable. Patency of the hepatic and portal veins. Bilateral renal cysts are noted measuring up to 3.3 cm within the inferior pole left kidney along with subcentimeter hypodensities which are too small to characterize. There is a 1.4 cm hypodense lesion of the lateral interpolar right kidney with Hounsfield unit of 79. On the 2013 study this lesion appears to represent a simple cyst. Interval change favors a hemorrhagic or proteinaceous cyst. 3 mm nonobstructing calculus of the superior pole left kidney. No ureteral calculi or hydronephrosis. Urinary bladder wall thickening with partial distention. Prostamegaly. Atherosclerosis of the aorta without aneurysm. No lymphadenopathy. Numerous dilated air and fluid-filled loops of small bowel measure up to approximately 3.7 cm. Trace free pelvic fluid with interloop edema. Transition point is noted involving a loop of ileum within the abdominal right lower quadrant on image 239 with decompressed distal ileum. Colonic diverticulosis with mild colonic fecal retention. Air-fluid levels are noted within the cecum, ascending and transverse colon. Normal appendix. Small periumbilical fat filled hernias are noted. Degenerative changes of the spine, pelvis and hips. No acute fracture notified. IMPRESSION: 1. Small bowel obstruction with transition point within the abdominal right lower quadrant, likely secondary to adhesions. Trace interloop edema with free pelvic fluid. 2. No pneumoperitoneum. 3. Left nephrolithiasis. 4. Bilateral renal cysts with 1.4 cm hyperdense lesion of the interpolar right kidney favoring a complex cyst. This could be confirmed with a nonemergent follow-up renal ultrasound. 5. Additional findings as above. PG Care Time/CCT Total # of Minutes Spent Total Time Spent with Patient: Total time spent is greater than 50% in coordination of care (as documented) at patient's floor/unit and/or counseling patient: Coding Level of Care Code 92304 Office/OBS Consult Lvl 2 Diagnoses Small bowel obstruction K56.609 COVID-19 U07.1 Pulmonary emboli I26.94 Pulmonary embolism type: multiple subsegmental (without acute cor pulmonale) (1) Pulmonary emboli Pulmonary embolism type: multiple subsegmental (without acute cor pulmonale) Qualified Code(s): I26.94 - Multiple subsegmental pulmonary emboli without acute cor pulmonale
[2022-07-09] MEDS: ENOXAPARIN INJ 40 MG/0.4 ML SYR SQ SCH ×3 (00:02→21:04)
[2022-07-09] MEDS: METOPROLOL TARTRATE 1 MG/ML VIAL IV SCH ×4 (00:03→17:55)
[2022-07-09] MEDS: SODIUM CHLORIDE 0.9% 1000ML 1,000 ML IV SCH ×2 (00:04→12:38)
[2022-07-09] MEDS ORDERED: CHLORASEPTIC 1.4% SOLN 180 ML BTL MT PRN (03:57)
[2022-07-09 04:20] LABS: Appearance Urine Clear (Clear); Bacteria Urine Automated Negative (Negative); Bilirubin Urine Negative (Negative); Blood Urine Negative (Negative); Color Urine Dark Yellow; Glucose Urine UA Negative (Negative); Ketones Urine 3+ (Negative); Leukocyte Esterase Urine Negative (Negative); Nitrite Urine Negative (Negative); Protein Urine Trace (Negative); RBC Urine Automated 0-4 /hpf (0-4); Specific Gravity Urine 1.042 (1.000-1.030); Urobilinogen Urine Negative (Negative)
[2022-07-09 08:05] LABS: Hematocrit (blood only) 46.2 % (40.1-51.0); Hemoglobin 15.2 g/dl (14.0-18.0); Mean Corpuscular Hemoglobin 30.3 pg (25.0-34.0); Mean Corpuscular Hgb Conc 32.9 g/dL (32.0-36.0); Mean Platelet Volume 10.4 fL (9.4-12.4); Platelet Count 272 K/uL (130-400); RDW Coefficient of Variation 13.1 % (11.5-14.5); RDW Standard Deviation 44.8 fL (36.4-46.3); Red Blood Count 5.02 M/uL (4.63-6.08); White Blood Count 10.45 K/ul (4.8-10.8)
[2022-07-09 08:32] LABS: BUN Creatinine Ratio 23.6 (10-20); Calcium 8.4 mg/dl (8.5-10.1); Est GFR (African American) 78.1 ml/min; Est GFR (Non-African American) 67.4 ml/min; Magnesium 2.1 mg/dl (1.7-2.4); Phosphorus 3.6 mg/dl (2.5-4.9); Potassium 4.1 mmol/L (3.5-5.1)
--- NOTE | 2022-07-09 08:42 | Hospitalist Progress Note ---
Date of Service July 09, 2022 Assessment & Plan (1) Small bowel obstruction: Plan: Patient presents with abdominal pain for several days however now worsened Per CT abd./pelvis - Small bowel obstruction with transition point within the abdominal right lower quadrant, likely secondary to adhesions Surgery consulted by ED. NG tube recommended. NG tube removed Abdominal pain resolved clear liquid diet monitor electrolytes and replace as needed (2) COVID-19: Plan: No respiratory symptoms at this time. Patient is saturating 98% on room air. Patient has history of interstitial lung disease, for which he takes prednisone daily and as needed albuterol. Patient reports he did not need to use albuterol in a while. No treatment for COVID at this time needed. Will continue to closely monitor HTN At home patient takes amlodipine and atenolol -For now we will hold home medications and will use IV metoprolol HLD -At home patient takes atorvastatin -For now we will hold, will resume when patient able to take p.o. DVT ppx: lovenox Code: Full Admission and Anticipated Discharge Date Admission Date: July 08, 2022 Subjective Pt seen in follow up of SBO and + covid19 NGT placed in the ED yesterday, now removed now removed Patient denies abdominal pain Overall feels much better No fevers, chills, cough, shortness of breath, chest pain Review of Systems Review of Systems: All systems reviewed & are unremarkable except as noted in Subjective Physical Exam Physical Exam: Constitutional:J WD/WN, vitals as a tao Eyes: PERRL, EOMI, conju nctivae normal, an icteric sclerae ENMT: external ear and n ose normal, oropha rynx normal Neck: supple Respiratory: normal respiratory effort, lungs dania ar to auscultation (min. rhonchi) Cardiovascular:J RRR, no murmur, no edema Chest (Breasts): Chest: normal insp ection of chest Gastrointestinal ( Abdomen): + abdomen distend ed, +BS, nontender Musculoskeletal: extremities motor strength 5/5 Skin: no rashes, warm an d dry Neurologic: PERRL, EOMI, no fa ce palsy, no dysar thria, moves extre mities Psychiatric: A+Ox3, euthymic af fect Genitourinary: no CVA tenderness Lymphatic: no lymphedema Results & Data Results & Data ([facility]) Vital Signs (Past 12 Hours) Vital Signs Temp Pulse Pulse Resp BP BP Pulse Ox 07/09/22 07:15 37.1 C 77 14 120/79 95 07/09/22 05:09 78 129/65 07/09/22 04:01 37 C 81 18 146/75 H 94 07/09/22 00:10 37.2 C 73 18 131/75 94 07/09/22 00:03 80 133/80 07/08/22 23:14 86 O2 Del Method 07/09/22 07:15 Room Air 07/09/22 05:09 07/09/22 04:01 Room Air 07/09/22 00:10 Room Air 07/09/22 00:03 07/08/22 23:14 Laboratory Results 07/09/22 07/09/22 07/09/22 Range/Units 07:31 07:31 04:00 WBC 10.45 (4.8-10.8) K/ul RBC 5.02 (4.63-6.08) M/uL Hgb 15.2 (14.0-18.0) g/dl POC Hgb (14.0-18.0) g/dl Hct 46.2 (40.1-51.0) % POC Hct (42-52) % MCV 92.0 (80.0-100.0) fL MCH 30.3 (25.0-34.0) pg MCHC 32.9 (32.0-36.0) g/dL RDW Std Deviation 44.8 (36.4-46.3) fL RDW Coeff of Andrew 13.1 (11.5-14.5) % Plt Count 272 (130-400) K/uL MPV 10.4 (9.4-12.4) fL Immature Gran % (Auto) % Neut % (Auto) % Lymph % (Auto) % Talbot % (Auto) % Eos % (Auto) % Baso % (Auto) % Neut # (Auto) (1.4-6.5) K/uL Lymph # (Auto) (1.2-3.4) K/uL Talbot # (Auto) (0.24-0.82) K/uL Eos # (Auto) (0-0.50) K/uL Baso # (Auto) (0-0.2) K/uL Immature Gran # (Auto) (0.00-0.02) K/uL POC Sodium (135-144) mmol/L Sodium 144 (136-145) mmol/L POC Potassium (3.3-5.0) mmol/L Potassium 4.1 (3.5-5.1) mmol/L POC Chloride (101-112) mmol/L Chloride 107 (98-107) mmol/L Carbon Dioxide 30 (21-32) mmol/L POC Total CO2 (24-31) mmol/L Anion Gap 7 (3-11) POC Anion Gap (16-25) mmol/L POC BUN (7-18) mg/dl BUN 25 H (6-23) mg/dl Creatinine 1.06 (0.6-1.4) mg/dl POC Creatinine (0.6-1.3) mg/dl Est Cr Clr Drug Dosing 58.0 ml/min Est GFR ( Amer) 78.1 ml/min Est GFR (Non-Af Amer) 67.4 ml/min BUN/Creatinine Ratio 23.6 H (10-20) Glucose 83 (70-99(Fasting)) mg/dl POC Glucose (other) (70-99) mg/dl Calcium 8.4 L (8.5-10.1) mg/dl POC Ioniz Calcium Karsten (1.12-1.32) mmol/l Phosphorus 3.6 (2.5-4.9) mg/dl Magnesium 2.1 (1.7-2.4) mg/dl Total Bilirubin (0.2-1.0) mg/dl Direct Bilirubin (0-0.2) mg/dl AST (13-39) U/L ALT (7-52) U/L Alkaline Phosphatase (34-104) U/L Total Protein (6.0-8.3) gm/dl Albumin (3.4-5.0) gm/dl Lipase (11-82) U/L Urine Color Dark Yellow Urine Appearance Clear (Clear) Urine pH 5.0 (4.5-7.5) Ur Specific [place] 1.042 H (1.000-1.030) Urine Protein Trace H (Negative) Urine Glucose (UA) Negative (Negative) Urine Ketones 3+ H (Negative) Urine Blood Negative (Negative) Urine Nitrite Negative (Negative) Urine Bilirubin Negative (Negative) Urine Urobilinogen Negative (Negative) Ur Leukocyte Esterase Negative (Negative) Urine WBC (Auto) 1-5 (0-5) /hpf Urine RBC (Auto) 0-4 (0-4) /hpf U Hyaline Cast (Auto) 5-10 H (0-5) /lpf U Epithel Cells (Auto) 5-10 H (0-5) /lpf Urine Bacteria (Auto) Negative (Negative) SARS-CoV-2 (PCR) (Negative) 07/08/22 07/08/22 07/08/22 Range/Units 09:58 08:57 08:52 WBC (4.8-10.8) K/ul RBC (4.63-6.08) M/uL Hgb (14.0-18.0) g/dl POC Hgb 16.7 (14.0-18.0) g/dl Hct (40.1-51.0) % POC Hct 49 (42-52) % MCV (80.0-100.0) fL MCH (25.0-34.0) pg MCHC (32.0-36.0) g/dL RDW Std Deviation (36.4-46.3) fL RDW Coeff of Andrew (11.5-14.5) % Plt Count (130-400) K/uL MPV (9.4-12.4) fL Immature Gran % (Auto) % Neut % (Auto) % Lymph % (Auto) % [place] % (Auto) % Eos % (Auto) % Baso % (Auto) % Neut # (Auto) (1.4-6.5) K/uL Lymph # (Auto) (1.2-3.4) K/uL [place]bot # (Auto) (0.24-0.82) K/uL Eos # (Auto) (0-0.50) K/uL Baso # (Auto) (0-0.2) K/uL Immature Gran # (Auto) (0.00-0.02) K/uL POC Sodium 140 (135-144) mmol/L Sodium 141 (136-145) mmol/L POC Potassium 4.3 (3.3-5.0) mmol/L Potassium 4.1 (3.5-5.1) mmol/L POC Chloride 105 (101-112) mmol/L Chloride 105 (98-107) mmol/L Carbon Dioxide 26 (21-32) mmol/L POC Total CO2 27 (24-31) mmol/L Anion Gap 10 (3-11) POC Anion Gap 14.0 L (16-25) mmol/L POC BUN 23 H (7-18) mg/dl BUN 20 (6-23) mg/dl Creatinine 0.95 (0.6-1.4) mg/dl POC Creatinine 1.0 (0.6-1.3) mg/dl Est Cr Clr Drug Dosing 65.8 ml/min Est GFR ( Amer) 89.1 ml/min Est GFR (Non-Af Amer) 76.9 ml/min BUN/Creatinine Ratio 21.1 H (10-20) Glucose 113 H (70-99(Fasting)) mg/dl POC Glucose (other) 113 H (70-99) mg/dl Calcium 9.2 (8.5-10.1) mg/dl POC Ioniz Calcium Karsten 1.12 (1.12-1.32) mmol/l Phosphorus (2.5-4.9) mg/dl Magnesium 2.2 (1.7-2.4) mg/dl Total Bilirubin 0.9 (0.2-1.0) mg/dl Direct Bilirubin 0.2 (0-0.2) mg/dl AST 12 L (13-39) U/L ALT 11 (7-52) U/L Alkaline Phosphatase 79 (34-104) U/L Total Protein 6.9 (6.0-8.3) gm/dl Albumin 4.1 (3.4-5.0) gm/dl Lipase 14 (11-82) U/L Urine Color Urine Appearance (Clear) Urine pH (4.5-7.5) Ur Specific [place] (1.000-1.030) Urine Protein (Negative) Urine Glucose (UA) (Negative) Urine Ketones (Negative) Urine Blood (Negative) Urine Nitrite (Negative) Urine Bilirubin (Negative) Urine Urobilinogen (Negative) Ur Leukocyte Esterase (Negative) Urine WBC (Auto) (0-5) /hpf Urine RBC (Auto) (0-4) /hpf U Hyaline Cast (Auto) (0-5) /lpf U Epithel Cells (Auto) (0-5) /lpf Urine Bacteria (Auto) (Negative) SARS-CoV-2 (PCR) POSITIVE A* (Negative) 07/08/22 Range/Units 08:52 WBC 10.43 (4.8-10.8) K/ul RBC 5.57 (4.63-6.08) M/uL Hgb 17.1 (14.0-18.0) g/dl POC Hgb (14.0-18.0) g/dl Hct 50.8 (40.1-51.0) % POC Hct (42-52) % MCV 91.2 (80.0-100.0) fL MCH 30.7 (25.0-34.0) pg MCHC 33.7 (32.0-36.0) g/dL RDW Std Deviation 44.0 (36.4-46.3) fL RDW Coeff of Andrew 13.0 (11.5-14.5) % Plt Count 244 (130-400) K/uL MPV 10.5 (9.4-12.4) fL Immature Gran % (Auto) 0.5 % Neut % (Auto) 75.6 % Lymph % (Auto) 12.6 % Tal[place] % (Auto) 9.5 % Eos % (Auto) 1.3 % Baso % (Auto) 0.5 % Neut # (Auto) 7.89 H (1.4-6.5) K/uL Lymph # (Auto) 1.31 (1.2-3.4) K/uL [place] # (Auto) 0.99 H (0.24-0.82) K/uL Eos # (Auto) 0.14 (0-0.50) K/uL Baso # (Auto) 0.05 (0-0.2) K/uL Immature Gran # (Auto) 0.05 H (0.00-0.02) K/uL POC Sodium (135-144) mmol/L Sodium (136-145) mmol/L POC Potassium (3.3-5.0) mmol/L Potassium (3.5-5.1) mmol/L POC Chloride (101-112) mmol/L Chloride (98-107) mmol/L Carbon Dioxide (21-32) mmol/L POC Total CO2 (24-31) mmol/L Anion Gap (3-11) POC Anion Gap (16-25) mmol/L POC BUN (7-18) mg/dl BUN (6-23) mg/dl Creatinine (0.6-1.4) mg/dl POC Creatinine (0.6-1.3) mg/dl Est Cr Clr Drug Dosing ml/min Est GFR ( Amer) ml/min Est GFR (Non-Af Amer) ml/min BUN/Creatinine Ratio (10-20) Glucose (70-99(Fasting)) mg/dl POC Glucose (other) (70-99) mg/dl Calcium (8.5-10.1) mg/dl POC Ioniz Calcium Karsten (1.12-1.32) mmol/l Phosphorus (2.5-4.9) mg/dl Magnesium (1.7-2.4) mg/dl Total Bilirubin (0.2-1.0) mg/dl Direct Bilirubin (0-0.2) mg/dl AST (13-39) U/L ALT (7-52) U/L Alkaline Phosphatase (34-104) U/L Total Protein (6.0-8.3) gm/dl Albumin (3.4-5.0) gm/dl Lipase (11-82) U/L Urine Color Urine Appearance (Clear) Urine pH (4.5-7.5) Ur Specific [place] (1.000-1.030) Urine Protein (Negative) Urine Glucose (UA) (Negative) Urine Ketones (Negative) Urine Blood (Negative) Urine Nitrite (Negative) Urine Bilirubin (Negative) Urine Urobilinogen (Negative) Ur Leukocyte Esterase (Negative) Urine WBC (Auto) (0-5) /hpf Urine RBC (Auto) (0-4) /hpf U Hyaline Cast (Auto) (0-5) /lpf U Epithel Cells (Auto) (0-5) /lpf Urine Bacteria (Auto) (Negative) SARS-CoV-2 (PCR) (Negative) Medications Administered Current Inpatient Medications Enoxaparin Sodium (Enoxaparin Inj 40 Mg/0.4 Ml Syr) 40 mg SQ Q12 [facility] Stop: 08/07/22 14:44 Last Admin: 07/09/22 00:02 Dose: 40 mg Hydromorphone HCl (Hydromorphone Inj 0.5 Mg/0.5 Ml Syr) 0.5 mg IV Q15M PRN PRN Reason: Pain Stop: 07/22/22 12:50 Last Admin: 07/08/22 13:19 Dose: 0.5 mg Sodium Chloride (Nss 1000ml) 1,000 mls @ 80 mls/hr IV .[id number] [facility] Stop: 08/07/22 11:29 Last Admin: 07/09/22 00:04 Dose: 80 mls/hr Acetaminophen (Ofirmev) 1,000 mg in 100 mls @ 400 mls/hr IV Q8H PRN PRN Reason: Pain Stop: 07/11/22 11:59 Metoprolol Tartrate (Metoprolol Tartrate 1 Mg/Ml Vial) 2.5 mg IV Q6 [facility] Stop: 08/07/22 14:44 Last Admin: 07/09/22 05:09 Dose: 2.5 mg Phenol (Chloraseptic 1.4% Soln 180 Ml Btl) 1 sprays MT Q4H PRN PRN Reason: Sore Throat Stop: 08/08/22 03:56
--- NOTE | 2022-07-09 09:20 | Surgery Progress Note ---
Date of Service July 09, 2022 Assessment & Plan (1) Small bowel obstruction: Plan: Patient here with SBO Clinically feeling improvement in symptoms, no pain/n/v Passing some flatus, no BM since admission Abdomen soft, mildly distended, non tender NGT ~400cc documented Will obtain KUB for further evaluation, if improved could consider clamp trial. Otherwise contiue NGT/NPO/bowel rest Admission and Anticipated Discharge Date Admission Date: July 08, 2022 Supervising Physician Co-Signing Physician Notes Patient seen and examined, agree with above. Admitted with SBO, passing flatus and feels better. NG tube has been clamped for quite some time and he has been tolerating, though he did have some ice chips and felt a little bloated after. We will check residuals and determine whether NG tube can be removed. Subjective Patient reports feeling well. Currently denies pain, nausea/vomiting. Passing some flatus. Last BM was yesterday. Physical Exam Physical Exam: awake/alert, no acute distress Gastrointestinal (Abdomen): Inspection/Auscultation: + abdomen distended (mild) Percussion/Palpation: abdomen soft; abdomen nontender Results & Data ([facility]) Vital Signs (Past 12 Hours) Vital Signs Temp Pulse Pulse Resp BP BP Pulse Ox 07/09/22 07:15 37.1 C 77 14 120/79 95 07/09/22 05:09 78 129/65 07/09/22 04:01 37 C 81 18 146/75 H 94 07/09/22 00:10 37.2 C 73 18 131/75 94 07/09/22 00:03 80 133/80 07/08/22 23:14 86 O2 Del Method 07/09/22 07:15 Room Air 07/09/22 05:09 07/09/22 04:01 Room Air 07/09/22 00:10 Room Air 07/09/22 00:03 07/08/22 23:14 PG Care Time/CCT Total # of Minutes Spent Total Time Spent with Patient: Total time spent is greater than 50% in coordination of care (as documented) at patient's floor/unit and/or counseling patient: Coding Level of Care Code 05253 Subseq Hosp Care Lvl 1 Diagnoses Small bowel obstruction K56.609
[2022-07-09] MEDS: PANTOprazole 40 MG in SYRINGE 0 ML IV SCH (10:24)
--- NOTE | 2022-07-09 10:37 | XRay Report ---
KUB CLINICAL HISTORY: Evaluate small bowel obstruction. COMPARISON STUDY: CT of the abdomen and pelvis July 08, 2022. FINDINGS: Tip of nasogastric tube projects over the distal stomach. Multiple loops of mildly dilated small bowel are noted. Small bowel dilatation has slightly decreased since prior CT. IMPRESSION: 1. Findings consistent with a small bowel obstruction. Slight improvement in small bowel dilatation s yusef prior CT. 2. Tip of nasogastric tube projects over the distal stomach. ACT 112: Negative or not required by law. Electronically signed by: Nj Messina M.D. 07/09/2022 10:35 AM
[2022-07-10] MEDS: METOPROLOL TARTRATE 1 MG/ML VIAL IV SCH ×3 (00:11→11:59)
[2022-07-10] MEDS: SODIUM CHLORIDE 0.9% 1000ML 1,000 ML IV SCH ×2 (00:11→12:07)
[2022-07-10 06:39] LABS: Hematocrit (blood only) 40.8 % (40.1-51.0); Hemoglobin 13.4 g/dl (14.0-18.0); Mean Corpuscular Hgb Conc 32.8 g/dL (32.0-36.0); Mean Corpuscular Volume 91.5 fL (80.0-100.0); Mean Platelet Volume 10.5 fL (9.4-12.4); Platelet Count 260 K/uL (130-400); RDW Coefficient of Variation 12.8 % (11.5-14.5); RDW Standard Deviation 43.4 fL (36.4-46.3); Red Blood Count 4.46 M/uL (4.63-6.08); White Blood Count 8.32 K/ul (4.8-10.8)
[2022-07-10 07:10] LABS: BUN Creatinine Ratio 20.8 (10-20); Calcium 7.6 mg/dl (8.5-10.1); Creatinine Clr Calc Pharmacy 64.1 ml/min; Est GFR (Non-African American) 75.9 ml/min; Magnesium 2.1 mg/dl (1.7-2.4); Phosphorus 2.7 mg/dl (2.5-4.9); Potassium 4.1 mmol/L (3.5-5.1)
[2022-07-10] MEDS: ENOXAPARIN INJ 40 MG/0.4 ML SYR SQ SCH ×2 (07:48→20:19)
--- NOTE | 2022-07-10 09:05 | Hospitalist Progress Note ---
Date of Service July 10, 2022 Assessment & Plan (1) Small bowel obstruction: Plan: Patient presents with abdominal pain for several days however now worsened Per CT abd./pelvis - Small bowel obstruction with transition point within the abdominal right lower quadrant, likely secondary to adhesions Surgery consulted by ED. NG tube recommended. NG tube removed yesterday Abdominal pain resolved Full liquid diet -> plan to advance to low fiber diet (if pt tolerates likely DC home tmrw) monitor electrolytes and replace as needed (2) COVID-19: Plan: No respiratory symptoms at this time. Patient is saturating 96% on room air. Patient has history of interstitial lung disease, for which he takes prednisone daily and as needed albuterol. Patient reports he did not need to use albuterol in a while. No treatment for COVID at this time needed. Will continue to closely monitor HTN At home patient takes amlodipine and atenolol -resume home meds as pt is tolerating PO HLD -At home patient takes atorvastatin -plan to resume at DC DVT ppx: lovenox Code: Full Admission and Anticipated Discharge Date Admission Date: July 08, 2022 Subjective Pt seen in follow up of SBO and + covid19 NGT removed yesterday PM Patient denies abdominal pain Overall feels well Tolerating full diet. Plan to advance to low fiber diet. No fevers, chills, shortness of breath, chest pain Reports minimal cough Review of Systems Review of Systems: All systems reviewed & are unremarkable except as noted in Subjective Physical Exam Physical Exam: Constitutional:J WD/WN, vitals as a tao Eyes: PERRL, EOMI, conju nctivae normal, an icteric sclerae ENMT: external ear and n ose normal, oropha rynx normal Neck: supple Respiratory: normal respiratory effort, lungs dania ar to auscultation (min. rhonchi) Cardiovascular:J RRR, no murmur, no edema Chest (Breasts): Chest: normal insp ection of chest Gastrointestinal ( Abdomen): + abdomen distend ed, +BS, nontender Musculoskeletal: extremities motor strength 5/5 Skin: no rashes, warm an d dry Neurologic: PERRL, EOMI, no fa ce palsy, no dysar thria, moves extre mities Psychiatric: A+Ox3, euthymic af fect Genitourinary: no CVA tenderness Lymphatic: no lymphedema Results & Data Results & Data ([facility]) Vital Signs (Past 12 Hours) Vital Signs Temp Pulse Pulse Resp BP BP Pulse Ox 07/10/22 08:06 36.7 C 79 16 132/79 98 07/10/22 05:59 70 07/10/22 05:33 81 127/72 07/10/22 00:11 79 148/74 H 07/09/22 23:43 37.2 C 86 18 145/73 H 94 O2 Del Method 07/10/22 08:06 Room Air 07/10/22 05:59 07/10/22 05:33 07/10/22 00:11 07/09/22 23:43 Room Air Laboratory Results 07/10/22 07/10/22 Range/Units 06:03 06:03 WBC 8.32 (4.8-10.8) K/ul RBC 4.46 L (4.63-6.08) M/uL Hgb 13.4 L (14.0-18.0) g/dl Hct 40.8 (40.1-51.0) % MCV 91.5 (80.0-100.0) fL MCH 30.0 (25.0-34.0) pg MCHC 32.8 (32.0-36.0) g/dL RDW Std Deviation 43.4 (36.4-46.3) fL RDW Coeff of Andrew 12.8 (11.5-14.5) % Plt Count 260 (130-400) K/uL MPV 10.5 (9.4-12.4) fL Sodium 142 (136-145) mmol/L Potassium 4.1 (3.5-5.1) mmol/L Chloride 108 H (98-107) mmol/L Carbon Dioxide 29 (21-32) mmol/L Anion Gap 5 (3-11) BUN 20 (6-23) mg/dl Creatinine 0.96 (0.6-1.4) mg/dl Est Cr Clr Drug Dosing 64.1 ml/min Est GFR ( Amer) 88.0 ml/min Est GFR (Non-Af Amer) 75.9 ml/min BUN/Creatinine Ratio 20.8 H (10-20) Glucose 88 (70-99(Fasting)) mg/dl Calcium 7.6 L (8.5-10.1) mg/dl Phosphorus 2.7 (2.5-4.9) mg/dl Magnesium 2.1 (1.7-2.4) mg/dl Medications Administered Current Inpatient Medications Enoxaparin Sodium (Enoxaparin Inj 40 Mg/0.4 Ml Syr) 40 mg SQ Q12 [facility] Stop: 08/07/22 14:44 Last Admin: 07/10/22 07:48 Dose: 40 mg Hydromorphone HCl (Hydromorphone Inj 0.5 Mg/0.5 Ml Syr) 0.5 mg IV Q15M PRN PRN Reason: Pain Stop: 07/22/22 12:50 Last Admin: 07/08/22 13:19 Dose: 0.5 mg Sodium Chloride (Nss 1000ml) 1,000 mls @ 80 mls/hr IV .[id number] [facility] Stop: 08/07/22 11:29 Last Admin: 07/10/22 00:11 Dose: 80 mls/hr Acetaminophen (Ofirmev) 1,000 mg in 100 mls @ 400 mls/hr IV Q8H PRN PRN Reason: Pain Stop: 07/11/22 11:59 Pantoprazole Sodium 40 mg/ (Syringe) 10 mls @ 5 mls/min IV DAILY@1100 [facility] Stop: 08/08/22 10:59 Last Admin: 07/09/22 10:24 Dose: 5 mls/min Metoprolol Tartrate (Metoprolol Tartrate 1 Mg/Ml Vial) 2.5 mg IV Q6 [facility] Stop: 08/07/22 14:44 Last Admin: 07/10/22 05:33 Dose: 2.5 mg Phenol (Chloraseptic 1.4% Soln 180 Ml Btl) 1 sprays MT Q4H PRN PRN Reason: Sore Throat Stop: 08/08/22 03:56 Last Admin: 07/09/22 10:24 Dose: 1 sprays
--- NOTE | 2022-07-10 09:49 | Surgery Progress Note ---
Date of Service July 10, 2022 Assessment & Plan (1) Small bowel obstruction: Plan: Patient here with SBO Tolerated NGT clamp trial yesterday with no residuals He continues to pass flatus and have BMs Tolerating clear liquids, can trial fulls for lunch...will go slow Some bloating noted but otherwise he is having no abdominal symptoms Will follow Admission and Anticipated Discharge Date Admission Date: July 08, 2022 Supervising Physician Co-Signing Physician Notes Patient seen examined, agree with above. Admitted with small bowel obstruction. NG pulled yesterday, tolerated full liquids, would like to try solid food. On exam is afebrile with stable vitals, abdomen soft, moderately distended but nont janeth. We will advance to low fiber diet, potential discharge tomorrow if tolerating. Subjective Patient reports feeling well, at his baseline. Denies abdominal pain, nausea/vomiting. Is tolerating clear liquids. Is passing flatus and reports he had 2 BMs this morning. Physical Exam Physical Exam: awake/alert, no distress Respiratory: normal respiratory effort Gastrointestinal (Abdomen): Inspection/Auscultation: + abdomen distended Percussion/Palpation: abdomen soft; abdomen nontender Results & Data ([facility]) Vital Signs (Past 12 Hours) Vital Signs Temp Pulse Pulse Resp BP BP Pulse Ox 07/10/22 08:06 36.7 C 79 16 132/79 98 07/10/22 05:59 70 07/10/22 05:33 81 127/72 07/10/22 00:11 79 148/74 H 07/09/22 23:43 37.2 C 86 18 145/73 H 94 O2 Del Method 07/10/22 08:06 Room Air 07/10/22 05:59 07/10/22 05:33 07/10/22 00:11 07/09/22 23:43 Room Air PG Care Time/CCT Total # of Minutes Spent Total Time Spent with Patient: Total time spent is greater than 50% in coordination of care (as documented) at patient's floor/unit and/or counseling patient: Coding Level of Care Code 49561 Subseq Hosp Care Lvl 1 Diagnoses Small bowel obstruction K56.609
[2022-07-10] MEDS: PANTOprazole 40 MG in SYRINGE 0 ML IV SCH (11:59)
[2022-07-10] MEDS: ATENOLOL 25 MG TABLET PO SCH (17:47)
[2022-07-11 07:26] LABS: BUN Creatinine Ratio 12.9 (10-20); Calcium 7.9 mg/dl (8.5-10.1); Creatinine Clr Calc Pharmacy 67.8 ml/min; Est GFR (African American) 91.5 ml/min; Est GFR (Non-African American) 78.9 ml/min; Phosphorus 2.3 mg/dl (2.5-4.9); Potassium 3.7 mmol/L (3.5-5.1)
[2022-07-11] MEDS ORDERED: POT PHOSPHATE MONOBASIC W/ SOD TAB PO SCH (08:30)
[2022-07-11] MEDS ORDERED: amLODIPine BESYLATE 5 MG TAB PO SCH (09:00)
[2022-07-11] MEDS: ENOXAPARIN INJ 40 MG/0.4 ML SYR SQ SCH (09:08)
[2022-07-11] MEDS: ATENOLOL 25 MG TABLET PO SCH (09:08)
--- NOTE | 2022-07-11 11:08 | Surgery Progress Note ---
Date of Service July 11, 2022 Assessment & Plan (1) Small bowel obstruction: Plan: 77-year-old male with recent COVID infection and resolved small bowel obstruction. Continue low fiber diet for 4 to 6 weeks postoperatively No need for outpatient general surgery follow-up Surgery will sign off, call with questions or concerns Admission and Anticipated Discharge Date Admission Date: July 08, 2022 Subjective 77-year-old male admitted with recent COVID infection and small bowel obstruction. He has had multiple loose bowel movements. He is tolerating low fiber diet. He is no longer feeling bloated. Physical Exam Constitutional: WD/WN, vitals as above Gastrointestinal (Abdomen): normal bowel sounds, soft, nontender, no hepatosplenomegaly Results & Data ([facility]) Vital Signs (Past 12 Hours) Vital Signs Temp Pulse Pulse Resp BP Pulse Ox O2 Del Method 07/11/22 10:00 Room Air 07/11/22 07:40 36.7 C 64 18 133/71 95 Room Air 07/11/22 07:43 68 07/11/22 03:55 36.9 C 66 18 142/78 H 98 Room Air 07/11/22 00:32 70 07/10/22 23:21 37.3 C 73 18 134/75 93 Room Air PG Care Time/CCT Total # of Minutes Spent Total Time Spent with Patient: Total time spent is greater than 50% in coordination of care (as documented) at patient's floor/unit and/or counseling patient: Coding Level of Care Code 24893 Inpt Consult Level 2 Diagnoses Small bowel obstruction K56.609
--- NOTE | 2022-07-11 11:16 | Discharge Summary ---
Date of Service July 11, 2022 Admission HPI Per Admitting Provider Patient is a 77-year-old male, with history of interstitial lung disease, BPH, prostate cancer, NED on CPAP, hypertension hyperlipidemia, history of melanoma, history of PE, history of hernia repair and TURP, now presents with abdominal pain. Since Saturday, about 4 to 5 days ago, patient has been having upper respiratory symptoms, and feeling weak. He reports that he checked his pulse ox and it was never below 93%. He tested positive for COVID yesterday at home. He reports feeling better from his respiratory symptoms and weakness. However he also developed abdominal pain several days ago and that has been getting worse. Today he reports that his abdominal pain was so severe that he had to present to the hospital. He was unable to take his medication this morning. His abdominal pain is mostly in lower quadrants however his entire abdomen feels distended and painful. Initially he felt he was very bloated, and he also reports that he was having bowel movement yesterday. Today he reports very small bowel movement, and minimal passing flatus. Denies any blood in the stool. He is sitting up in bed, in no acute distress, however reports abdominal pain. He denies any fevers or chills lately. He said he never checked his temperature at home. His breathing is at baseline per patient. And he is breathing comfortably on room air. Denies any chest pain or palpitations. In the ED candice ent was diagnosed with COVID, and also CT of his abdomen was obtained. That showed small bowel obstruction and surgery was consulted. They recommended NG tube. NG tube was ordered and will be placed. Admission Exam Per Admitting Provider Constitutional: WD/WN, vitals as above Eyes: PERRL, conjunctivae normal, anicteric sclerae ENMT: external ear and nose normal, oropharynx normal Neck: trachea midline, no thyromegaly Respiratory: normal respiratory effort, lungs clear to auscultation (min. rhonchi) Cardiovascular: RRR, no murmur, no edema Chest (Breasts): Chest: normal inspection of chest Gastrointestinal (Abdomen): Inspection/Auscultation: + abdomen distended (sluggish BS, TTP at RLQ) Musculoskeletal: no cyanosis or clubbing, extremities motor strength 5/5 Skin: no rashes, warm and dry D Neurologic: PERRL, EOMI, accommodation nl, no face palsy, no dysarthria Psychiatric: A+Ox3, euthymic affect Genitourinary: no CVA tenderness Lymphatic: no lymphedema Principal Diagnosis Small bowel obstruction Asymptomatic COVID-19 infection Discharge Exam GENERAL: Alert and oriented x3. NAD, on RA. HEENT: No pallor, no icterus. Pupils equal, round and reactive to light. Oral mucosa moist. NECK: No JVD, no neck masses. HEART: S1 and S2 heard. Regular rate and rhythm. No murmur, no gallop. RESPIRATORY SYSTEM: Normal AP diameter. No accessory muscle use. No wheezing, b/b fine crackles. ABDOMEN: Soft, bowel sounds present, nontender, no distention. CENTRAL NERVOUS SYSTEM: No facial droop. Speech is clear. Obeys simple commands. Moves extremities. EXTREMITIES: No edema, no erythema seen. Discharge Data Allergies Allergy/AdvReac Type Severity Reaction Status Date / Time phenazopyridine AdvReac Intermediate TACHYCARDIA Verified 08/30/21 16:58 tamsulosin AdvReac Intermediate HYPOTENSION Verified 08/30/21 16:58 Consultations 07/08/22 10:18 Consult General Surgery Stat 07/08/22 10:50 ED Decision to Admit Stat Ordered Studies 07/08/22 07:59 CT abd pelvis IV con only Stat Hospital Course (1) Small bowel obstruction: Plan Patient was seen and examined at bedside as a follow-up of a small bowel obstruction and asymptomatic COVID-19 infection. Patient was lying in bed, stable respiratory davis, on room air, has some bibasilar fine crackles [patient has a history of interstitial lung disease, patient is on prednisone low-dose], patient reports tolerating diet well and has been passing some bowel movements, discussed with surgery and okay with discharge today from their point of view. Patient to continue with low fiber diet for next 4 to 6 weeks upon discharge. Patient being discharged home with following instruction at the point of dis charge: Follow-up with your primary care physician within a week time and likely you will need blood labs CBC/CMP/magnesium/phosphorus level. Continue with low fiber diet for next 4 to 6 weeks, continue ambulation and adequate hydration as discussed at the bedside. Take your medications as prescribed. Home Health Attestation I certify that this patient is under my care and that I, or a physicians pharmacy innovation assistant working with me, had a face to-face encounter that meets the home health [id number] encounter requirements with this patient. The encounter with the patient was in whole, or in part, for the following medical condition, which is the primary reason for home health care (list medical condition): I certify that, based on my findings, the following services are medically necessary home health services: My clinical findings support the need for the above services because: Further, I certify that my clinical findings support that this patient is homebound (i.e. absences from home require considerable and taxing effort and are for medical reasons or restoration services or infrequently or of short duration when for other reasons) because: Certification for Home Health Services: Based on the above findings, I certify that this patient is confined to the home and needs intermittent mcc care, physical therapy and/or speech therapy or continues to need occupational therapy. The patient is under my care, and I have initiated the establishment of the plan of care. This patient will be followed by a physician who will periodically review the plan of care. Total Time Total Time Spent Total Time Spent (In Minutes): 40 Discharge Plan Discharge Items Patient Disposition: Home - Self-Care Reason For Visit: SBO, +COVID Discharge Diagnosis: Small bowel obstruction Asymptomatic COVID-19 infection Activity: Resume your previous activity Non-emergency contact: Primary Care Provider Call non-emergency contact if: you have any medication questions, your symptoms worsen, your pain is worsening and your temperature is above 101.5 Follow-up/Referrals: David Almaguer MD [Primary Care Provider] - (Date & Time 07/20/2022 12:00 PM Provider David Almaguer MD Department General Internal Medicine [facility] ) Diet: Low Fiber and Vegetarian (Lacto-Ovo) Addtl Attending Provider Instructions: Follow-up with your primary care physician within a week time and likely you will need blood labs CBC/CMP/magnesium/phosphorus level. Continue with low fiber diet for next 4 to 6 weeks, continue ambulation and adequate hydration as discussed at the bedside. Take your medications as prescribed. Pending Studies at Discharge: No Stand-Alone Forms: My [employer], Smoking Cessation Medications and DC Order Prescriptions: Continued atorvastatin 10 mg tablet 10 mg PO DAILY prednisone 5 mg tablet 5 mg PO DAILY atenolol 25 mg tablet 25 mg PO DAILY amlodipine 5 mg tablet 5 mg PO DAILY albuterol sulfate 90 mcg/actuation HFA aerosol inhaler 2 puff inhalation DIRECTED PRN (Reason: Shortness Of Breath) acetaminophen [Tylenol Extra Strength] 500 mg Tablet 500 - 1,000 mg PO DIRECTED PRN (Reason: PAIN/FEVER) Discharge Orders: Discharge Order (Routine); Ordered 07/11/22 Ordered By: Paula Gold Admission Data Admit Date/Time: 07/08/22 10:40 Attending Provider: Paula Gold Admit Provider: Tho Jin Primary Care Provider: David Almaguer Other Providers: Chau Brennan ; Tho Jin
== END 2022-07-11 11:59 | disposition home or self-care (01) | DRG 388 ==
LOC: ED 07:26 → EDINP 10:40 → SUATTDRO 10:40 → 2S 19:31